=== PATIENT | male | born 1940 | race African-American/Black ===

== ENCOUNTER 2016-10-29 17:42 | Emergency (ER) | payer BC ==
[~2016-10-29] VITALS: Ht 182.9 cm; Wt 79.0 kg
[~2016-10-29 17:42] MED LIST: ASPEC81 PO; ATOR-24 PO; CLOP1TAB15 PO; LEVE500T13 PO; MELA1TAB5 PO; METO25TA56 PO; MOME50SP5; MTR800 PO; MULT-513 PO; OMEG10007 PO; OXYC-57 PO; PRLSR20 PO; TAMS0.4C38 PO
[2016-10-29 17:49] VITALS: TEMP 37.6; Ht 182.9 cm; Wt 79.0 kg
[2016-10-29] MEDS ORDERED: ONDANSETRON 8 MG/54 ML D5W IV STA (17:51)
[2016-10-29] MEDS ORDERED: SODIUM CHLORIDE 0.9% 1000ML 1,000 ML IV STA (17:51)
--- NOTE | 2016-10-29 18:13 | DIAGNOSTIC IMAGING REPORT ---
CHEST ONE VIEW PORTABLE CLINICAL HISTORY: EVALUATE ALTERED MENTAL STATUS/WEAKNESS dyspnea COMPARISON STUDY: 04/17/2015 FINDINGS: Prior median sternotomy. Diaphragms smooth. Lungs are clear. IMPRESSION: No acute process. Electronically signed by: Elier Mike M.D. 10/29/2016 6:12 PM
[2016-10-29 18:24] LABS: BASO % 0.3 %; BASO ABS # 0.03 K/uL (0-0.2); COMPLETE YES; EOS % 0.6 %; HEMATOCRIT 41.2 % (42-52); IG% 0.1 %; LYMPH % 6.7 %; LYMPH ABS # 0.71 K/uL (1.2-3.4); MEAN CELL VOLUME 95.6 fL (80-100); MEAN CORPUSCULAR HEMOGLOBIN 32.3 pg (25-34); MEAN CORPUSCULAR HGB CONC 33.7 g/dl (32-36); MEAN PLATELET VOLUME 10.7 fL (7.4-10.4); MONO % 6.1 %; NEUT % 86.2 %; PLATELET COUNT 127 K/uL (130-400); RED BLOOD COUNT 4.31 M/uL (4.7-6.1); WHITE BLOOD COUNT 10.58 K/uL (4.8-10.8)
[2016-10-29 18:36] LABS: PROTHROMBIN TIME (PATIENT) 10.9 SECONDS (9.0-12.0)
[2016-10-29 18:45] LABS: ALT/SGPT 23 U/L (12-78); AST/SGOT 26 U/L (15-37); BLOOD UREA NITROGEN 12 mg/dl (7-18); BUN/CREATININE RATIO 9.9 (10-20); CARBON DIOXIDE 26 mmol/L (21-32); CHLORIDE 107 mmol/L (98-107); GLUCOSE 103 mg/dl (70-99); MAGNESIUM 1.9 mg/dl (1.8-2.4); POTASSIUM 3.7 mmol/L (3.5-5.1); SODIUM 142 mmol/L (136-145)
[2016-10-29 18:47] LABS: ALKALINE PHOSPHATASE 82 U/L (45-117)
[2016-10-29 20:11] LABS: INFLUENZA A PCR Neg for Influ A (NEG); INFLUENZA B PCR Neg for Influ B (NEG)
[2016-10-29] MEDS ORDERED: ONDA4TAB10 SL (20:14)
--- NOTE | 2016-10-29 20:15 | EMERGENCY ROOM VISIT NOTE ---
History Report prepared by Ruth: Bozena Martinez Under the Supervision of: Dr. Jules Jorge D.O. First contact with patient: 17:46 Chief Complaint: SYNCOPE (NEAR SYNCOPE) Stated Complaint: NEAR SYNCOPE, FLU LIKE SX History of Present Illness The patient is a 76 year old male who presents to the Emergency Room with complaints of a persistent illness that began approximately four hours ago. The patient states that he developed nausea, vomiting, and diarrhea today about four hours ago. He states that his diarrhea is liquid in consistency and states that it has been persistent. The patient states that he has been vomiting for approximately one hour. He states that he has also been experiencing a cough, runny nose and lightheadedness. The patient states that the cough, congestion, and runny nose began four days ago. He states that prior to arrival he had a near syncopal episode. The patient notes eye pain today. He notes a history of kidney stones and states that sometimes his kidney stones present with these symptoms. Source of History: patient Onset: four hours ago Position: other (global) Quality: other (illness) Timing: other (persistent) Associated Symptoms: + cough, + diarrhea, + nausea, + vomiting Note: Associated Symptoms: runny nose, lightheadedness, congestion, eye pain Review of Systems See HPI for pertinent positives & negatives. A total of 10 systems reviewed and were otherwise negative. Past Medical & Surgical Medical Problems: (1) Kidney stone Surgical Problems: (1) Hx of CABG Family History FH: diabetes mellitus Social History Smoking Status: Unknown if Ever Smoked Alcohol Use: none Drug Use: none Housing Status: lives with family Occupation Status: retired Current/Historical Medications Scheduled Aspirin Enteric Coated (Ecotrin Or Generic *), 81 MG PO QAM Atorvastatin (Lipitor), 40 MG PO HS Clopidogrel (Plavix), 75 MG PO HS Fish Oil ([place]-3), 1 CAP PO BID Metoprolol Tartrate (Lopressor) (Lopressor), 25 MG PO HS Multivitamins/Minerals (Mvi With Minerals), 1 TAB PO QAM Omeprazole (Prilosec), 20 MG PO QAM Ondasetron Odt (Zofran Odt), 4 MG SL Q6H Tamsulosin Hcl (Flomax), 0.4 MG PO QAM Allergies Coded Allergies: Clindamycin (Unverified Allergy, Mild, rash, 06/20/15) Ranitidine (Verified Allergy, Unknown, CONFUSION, 06/20/15) Physical Exam Vital Signs Date Time Temp Pulse Resp B/P Pulse Ox O2 Delivery O2 Flow Rate FiO2 10/29/16 19:04 84 10/29/16 18:19 82 118/58 90 118/68 94 122/69 10/29/16 17:49 Room Air 10/29/16 17:49 37.6 84 16 121/68 97 Room Air Physical Exam CONSTITUTIONAL/VITAL SIGNS: Reviewed / noted above. GENERAL: Non-toxic in appearance. INTEGUMENTARY: Warm, dry, and [place]. HEAD: Normocephalic. EYES: without scleral icterus or trauma. ENT/OROPHARYNX: clear and moist. LYMPHADENOPATHY/NECK: Is supple without lymphadenopathy or meningismus. RESPIRATORY: Lungs clear and equal. CARDIOVASCULAR: Regular rate and rhythm. Systolic ejection murmur. GI/ABDOMEN: Soft and nontender. No organomegaly or pulsatile mass. No rebound or guarding. Normal bowel sounds. EXTREMITIES: Warm and well perfused. BACK: No CVA tenderness. NEUROLOGICAL: Intact without focal deficits. PSYCHIATRIC: normal affect. MUSCULOSKELETAL: Normally developed with good muscle tone. Medical Decision & Procedures ER Provider Diagnostic Interpretation: X ray results and stated below per my interpretation and radiology interpretation. CHEST ONE VIEW PORTABLE CLINICAL HISTORY: EVALUATE ALTERED MENTAL STATUS/WEAKNESS dyspnea COMPARISON STUDY: 04/17/2015 FINDINGS: Prior median sternotomy. Diaphragms smooth. Lungs are clear. IMPRESSION: No acute process. Electronically signed by: Elier Mike M.D. 10/29/2016 6:12 PM Laboratory Results 10/29/16 18:10 Red Blood Count 4.31, Mean Corpuscular Volume 95.6, Mean Corpuscular Hemoglobin 32.3, Mean Corpuscular Hemoglobin Concent 33.7, Mean Platelet Volume 10.7, Neutrophils (%) (Auto) 86.2, Lymphocytes (%) (Auto) 6.7, Monocytes (%) (Auto) 6.1, Eosinophils (%) (Auto) 0.6, Basophils (%) (Auto) 0.3, Neutrophils # (Auto) 9.12, Lymphocytes # (Auto) 0.71, Monocytes # (Auto) 0.65, Eosinophils # (Auto) 0.06, Basophils # (Auto) 0.03 10/29/16 18:10 Test 10/29/16 18:01 10/29/16 18:10 Influenza Type A (RT-PCR) Neg for Influ A (NEG) Influenza Type B (RT-PCR) Neg for Influ B (NEG) White Blood Count 10.58 K/uL (4.8-10.8) Red Blood Count 4.31 M/uL (4.7-6.1) Hemoglobin 13.9 g/dL (14.0-18.0) Hematocrit 41.2 % (42-52) Mean Corpuscular Volume 95.6 fL (80-100) Mean Corpuscular Hemoglobin 32.3 pg (25-34) Mean Corpuscular Hemoglobin Concent 33.7 g/dl (32-36) Platelet Count 127 K/uL (130-400) Mean Platelet Volume 10.7 fL (7.4-10.4) Neutrophils (%) (Auto) 86.2 % Lymphocytes (%) (Auto) 6.7 % Monocytes (%) (Auto) 6.1 % Eosinophils (%) (Auto) 0.6 % Basophils (%) (Auto) 0.3 % Neutrophils # (Auto) 9.12 K/uL (1.4-6.5) Lymphocytes # (Auto) 0.71 K/uL (1.2-3.4) Monocytes # (Auto) 0.65 K/uL (0.11-0.59) Eosinophils # (Auto) 0.06 K/uL (0-0.5) Basophils # (Auto) 0.03 K/uL (0-0.2) RDW Standard Deviation 49.3 fL (36.4-46.3) RDW Coefficient of Variation 14.0 % (11.5-14.5) Immature Granulocyte % (Auto) 0.1 % Immature Granulocyte # (Auto) 0.01 K/uL (0.00-0.02) Prothrombin Time 10.9 SECONDS (9.0-12.0) Prothromb Time International Ratio 1.0 (0.9-1.1) Activated Partial Thromboplast Time 26.0 SECONDS (21.0-31.0) Partial Thromboplastin Ratio 1.0 Anion Gap 9.0 mmol/L (3-11) Est Creatinine Clear Calc Drug Dose 58.4 ml/min Estimated GFR () 68.1 Estimated GFR (Non- 58.8 BUN/Creatinine Ratio 9.9 (10-20) Calcium Level 9.0 mg/dl (8.5-10.1) Magnesium Level 1.9 mg/dl (1.8-2.4) Total Bilirubin 1.3 mg/dl (0.2-1) Direct Bilirubin 0.3 mg/dl (0-0.2) Aspartate Amino Transf (AST/SGOT) 26 U/L (15-37) Alanine Aminotransferase (ALT/SGPT) 23 U/L (12-78) Alkaline Phosphatase 82 U/L (45-117) Total Creatine Kinase 59 U/L (39-308) Creatine Kinase MB < 0.5 ng/ml (0.5-3.6) Creatine Kinase MB Ratio (0-3.0) Troponin I < 0.015 ng/ml (0-0.045) Total Protein 7.5 gm/dl (6.4-8.2) Albumin 3.6 gm/dl (3.4-5.0) Lipase 135 U/L (73-393) Laboratory results as stated above per my review. Medications Administered Medications (Trade) Dose Ordered Sig/Isaiah Route Start Time Stop Time Status Last Admin Dose Admin Sodium Chloride (Nss 1000ml) 1,000 ml @ 999 mls/hr Q1H1M STAT IV 10/29/16 17:51 10/29/16 18:51 DC 10/29/16 18:13 999 MLS/HR Ondansetron HCl (Zofran 8mg Iv) 8 mg NOW STAT IV 10/29/16 17:51 10/29/16 17:53 DC 10/29/16 18:13 8 MG ECG Indication: vomiting, syncope Rate (beats per minute): 82 Rhythm: normal sinus Findings: no acute ischemic change, no ectopy ED Course 1746: Previous medical records were reviewed. The patient was evaluated in room A10. A complete history and physical examination was performed. 1750: Ordered Zofran 8 mg IV, Sodium Chloride 1000 lm @ 999 mls/hr IV. 2016: I reevaluated the patient and he is resting comfortably. I discussed the exam findings and I discussed the treatment plan. He verbalized complete understanding and agreement. He is ready to go home. Medical Decision Differential diagnosis: Etiologies such as gastroenteritis, food borne illness, infections, appendicitis , diverticulitis, inflammatory bowel disease, obstruction, GI bleed, biliary pathology, as well as others were entertained. This is a 76-year-old male who presents to the ED with a chief complaint of near syncope and flulike symptoms. The patient states that he developed nausea , vomiting and diarrhea about 4 hours ago. The patient also reports some upper respiratory symptoms. Vital signs are stable. Physical exam was unremarkable. He does have a systolic ejection murmur. Chest x-ray did not show any acute disease. CBC is unremarkable. Complete metabolic panel was unremarkable. Flu swab was negative. The patient was told the results of the test. He was treated with IV fluids and IV Zofran. He is felt to be stable for discharge. A prescription for Zofran was given. Impression Primary Impression: Vomiting and diarrhea Scribe Attestation The scribe's documentation has been prepared under my direction and personally reviewed by me in its entirety. I confirm that the note above accurately reflects all work, treatment, procedures, and medical decision making performed by me. Departure Information Dispostion Home / Self-Care Prescriptions Ondasetron Odt (ZOFRAN ODT) 4 Mg Tab 4 MG SL Q6H for Nausea, #15 TAB Prov: Jules Jorge D.O. 10/29/16 Referrals Orville Khan D.O. (PCP) Forms HOME CARE DOCUMENTATION FORM, IMPORTANT VISIT INFORMATION Patient Instructions A Signature Page, ED Diet Vomiting Diarrhea, My [facility] Additional Instructions Zofran: Allow one tablet to dissolve under the tongue every 6 hours as needed for nausea or vomiting. Imodium may be beneficial for diarrhea. Follow-up with your doctor for further care and evaluation in 1-5 days. Return to the emergency department for worsening or new symptoms or any concerns. You have been examined and treated today on an emergency basis only. This is not a substitute for, or an effort to provide, complete comprehensive medical care. It is impossible to recognize and treat all injuries or illnesses in a single emergency department visit. It is therefore important that you follow up closely with your doctor. Call as soon as possible for an appointment.
[2016-10-29] MEDS ORDERED: ONDANSETRON HOME PACK 4MG OD TAB PO ONE (20:30)
[2016-10-29 20:52] VITALS: BP 119/70; PULSE 74; O2SAT 99
== END 2016-10-29 20:54 | disposition home or self-care (01) ==
LOC: EDBD 17:42 → C.EDA 17:45
DX: R11.2 Nausea with vomiting, unspecified (principal); R19.7 Diarrhea, unspecified; Z95.1 Presence of aortocoronary bypass graft; Z79.82 Long term (current) use of aspirin

== ENCOUNTER 2016-10-31 21:40 | Emergency (ER) | payer BC ==
[~2016-10-31] VITALS: Ht 182.9 cm; Wt 79.7 kg
[2016-10-31 21:40] VITALS: TEMP 36.9; O2SAT 99; Ht 182.9 cm; Wt 79.7 kg
[~2016-10-31 21:40] MED LIST changes: -LEVE500T13 PO; -MELA1TAB5 PO; -MOME50SP5; -MTR800 PO; +ONDA4TAB10 SL; -OXYC-57 PO
[2016-10-31] MEDS ORDERED: MoRPHine SULFATE 4 MG/ML 1 ML CARP\\VIAL IV STA (22:17)
[2016-10-31] MEDS ORDERED: METOCLOPRAMIDE HCL INJ 5 MG/ML 2 ML VIAL IV STA (22:17)
[2016-10-31] MEDS ORDERED: SODIUM CHLORIDE 0.9% 500ML 500 ML IV STA (22:17)
--- NOTE | 2016-10-31 22:17 | EMERGENCY ROOM VISIT NOTE ---
History Report prepared by Ruth: Gael De La Torre Under the Supervision of: Dr. Jules Franklin M.D. First contact with patient: 21:47 Chief Complaint: OTHER COMPLAINT Stated Complaint: DIZZINESS, WEAKNESS, CONSTIPATED, History of Present Illness The patient is a 76 year old male who presents to the Emergency Room with complaints of persistent dizziness that started earlier today. The patient also complains of lightheadedness, constipation, and abdominal and chest tightness. The patient notes that the dizziness and lightheadedness is relieved when he closes his left eye. The patient has a history of shingles and he notes that at baseline he has pain in his left eye radiating to the the left side of his head. However, the pain he is feeling in his left today is different from what he usually feels. He also notes a decreased appetite. Two days ago, the patient presents to the ED for nausea and vomiting but these symptoms have since resolved. Source of History: patient Onset: earlier today Position: other (global) Associated Symptoms: + abdominal pain (tightness), + chest pain (tightness) Note: Other associated symptoms: lightheadedness, constipation, pain in left eye, decreased appetite. Review of Systems See HPI for pertinent positives & negatives. A total of 10 systems reviewed and were otherwise negative. Past Medical & Surgical Medical Problems: (1) Kidney stone Surgical Problems: (1) Hx of CABG Family History FH: diabetes mellitus Social History Smoking Status: Unknown if Ever Smoked Alcohol Use: none Drug Use: none Housing Status: lives with family Occupation Status: retired Current/Historical Medications Scheduled Aspirin Enteric Coated (Ecotrin Or Generic *), 81 MG PO QAM Atorvastatin (Lipitor), 40 MG PO HS Clopidogrel (Plavix), 75 MG PO HS Fish Oil ([place]-3), 1 CAP PO BID Metoprolol Tartrate (Lopressor) (Lopressor), 25 MG PO HS Multivitamins/Minerals (Mvi With Minerals), 1 TAB PO QAM Omeprazole (Prilosec), 20 MG PO QAM Ondasetron Odt (Zofran Odt), 4 MG SL Q6H Tamsulosin Hcl (Flomax), 0.4 MG PO QAM Allergies Coded Allergies: Clindamycin (Unverified Allergy, Mild, rash, 06/20/15) Ranitidine (Verified Allergy, Unknown, CONFUSION, 06/20/15) Physical Exam Vital Signs Date Time Temp Pulse Resp B/P Pulse Ox O2 Delivery O2 Flow Rate FiO2 10/31/16 23:36 78 15 120/61 98 Room Air 79 123/71 83 132/61 10/31/16 23:00 71 20 112/58 98 Room Air 10/31/16 22:05 71 10/31/16 21:40 36.9 73 20 133/66 99 Room Air 10/31/16 21:40 99 Room Air Physical Exam GENERAL: Patient is a healthy-appearing well-nourished HEAD: Normocephalic atraumatic EYES: Ocular movements intact pupils equal and react to light OROPHARYNX mucous membranes are moist no exudates present no erythema or edema present NECK: Supple no nuchal rigidity CHEST: Good equal expansion LUNGS: Clear and equal to auscultation CARDIAC: 12/29 systolic murmur ABDOMEN: Soft nontender no guarding BACK: No CVA tenderness EXTREMITIES: No pain upon palpation normal muscle strength in all groups no clubbing cyanosis or edema NEURO: Patient is following commands is answering questions appropriately. Alert and oriented x3 Cranial Nerves 2-12 grossly intact Medical Decision & Procedures ER Provider Diagnostic Interpretation: X-ray results as stated below per interpretation by me and the radiologist: CHEST ONE VIEW PORTABLE CLINICAL HISTORY: Chest pressure. Dizziness. COMPARISON STUDY: Chest radiograph October 29, 2016. FINDINGS: There are median sternotomy wires and clips from bypass grafting. No pneumothorax or pleural effusion is present. There is no evidence of pulmonary edema. Cardiomediastinal silhouette is stable. IMPRESSION: No acute cardiopulmonary findings. CT the head shows no acute cranial hemorrhage, bilateral chronic subdural hematomas. No midline shift. Involutional changes with small vessel disease Minimal sinus mucosal thickening Metallic structure just to the left globe CTA of the chest shows no aortic aneurysm or dissection cardiomegaly and CABG. No effusion or consolidation. CTA of the abdomen and pelvis shows no aortic aneurysm or dissection. Bilateral nephrolithiasis. Cholelithiasis. No evidence of appendicitis or colitis Electronically signed by: Pablo Nicole M.D. 10/31/2016 10:25 PM Dictated Date/Time: 10/31/2016 10:24 PM Laboratory Results 10/31/16 22:35 Red Blood Count 4.07, Mean Corpuscular Volume 94.1, Mean Corpuscular Hemoglobin 32.7, Mean Corpuscular Hemoglobin Concent 34.7, Mean Platelet Volume 10.6, Neutrophils (%) (Auto) 68.6, Lymphocytes (%) (Auto) 19.3, Monocytes (%) (Auto) 9.5, Eosinophils (%) (Auto) 2.1, Basophils (%) (Auto) 0.4, Neutrophils # (Auto) 5.10, Lymphocytes # (Auto) 1.44, Monocytes # (Auto) 0.71, Eosinophils # (Auto) 0.16, Basophils # (Auto) 0.03 10/31/16 22:35 Test 10/31/16 22:35 10/31/16 22:37 White Blood Count 7.45 K/uL (4.8-10.8) Red Blood Count 4.07 M/uL (4.7-6.1) Hemoglobin 13.3 g/dL (14.0-18.0) Hematocrit 38.3 % (42-52) Mean Corpuscular Volume 94.1 fL (80-100) Mean Corpuscular Hemoglobin 32.7 pg (25-34) Mean Corpuscular Hemoglobin Concent 34.7 g/dl (32-36) Platelet Count 135 K/uL (130-400) Mean Platelet Volume 10.6 fL (7.4-10.4) Neutrophils (%) (Auto) 68.6 % Lymphocytes (%) (Auto) 19.3 % Monocytes (%) (Auto) 9.5 % Eosinophils (%) (Auto) 2.1 % Basophils (%) (Auto) 0.4 % Neutrophils # (Auto) 5.10 K/uL (1.4-6.5) Lymphocytes # (Auto) 1.44 K/uL (1.2-3.4) Monocytes # (Auto) 0.71 K/uL (0.11-0.59) Eosinophils # (Auto) 0.16 K/uL (0-0.5) Basophils # (Auto) 0.03 K/uL (0-0.2) RDW Standard Deviation 47.2 fL (36.4-46.3) RDW Coefficient of Variation 13.7 % (11.5-14.5) Immature Granulocyte % (Auto) 0.1 % Immature Granulocyte # (Auto) 0.01 K/uL (0.00-0.02) Estimated GFR () 75.7 Estimated GFR (Non- 65.3 BUN/Creatinine Ratio 15.5 (10-20) Calcium Level 9.1 mg/dl (8.5-10.1) Total Bilirubin 1.5 mg/dl (0.2-1) Direct Bilirubin 0.3 mg/dl (0-0.2) Aspartate Amino Transf (AST/SGOT) 28 U/L (15-37) Alanine Aminotransferase (ALT/SGPT) 22 U/L (12-78) Alkaline Phosphatase 82 U/L (45-117) Total Creatine Kinase 70 U/L (39-308) Creatine Kinase MB 1.2 ng/ml (0.5-3.6) Creatine Kinase MB Ratio 1.7 (0-3.0) Troponin I < 0.015 ng/ml (0-0.045) Total Protein 7.5 gm/dl (6.4-8.2) Albumin 3.6 gm/dl (3.4-5.0) Thyroid Stimulating Hormone (TSH) 7.390 uIu/ml (0.300-4.500) Free Triiodothyronine 3.45 pg/ml (2.30-4.20) Bedside Hemoglobin 13.3 g/dl (14.0-18.0) Bedside Hematocrit 39 % (42-52) Bedside Sodium 142 mEq/L (135-144) Bedside Potassium 3.2 mEq/L (3.3-5.0) Bedside Chloride 101 mEq/L (101-112) Bedside Total CO2 25 mEq/l (24-31) Anion Gap 20.0 mmol/L (16-25) Bedside Blood Urea Nitrogen 16 mg/dl (7-18) Bedside Creatinine 1.1 mg/dl (0.6-1.3) Bedside Glucose (other) 95 mg/dl (70-99) Bedside Ionized Calcium (Taty) 1.19 mmol/l (1.12-1.32) Labs reviewed by ED physician. Medications Administered Medications (Trade) Dose Ordered Sig/Isaiah Route Start Time Stop Time Status Last Admin Dose Admin Sodium Chloride (Nss 500ml) 500 ml @ 999 mls/hr Q31M STAT IV 10/31/16 22:17 10/31/16 22:47 DC 10/31/16 23:06 999 MLS/HR Metoclopramide HCl (Reglan Inj) 10 mg NOW STAT IV 1/6/17 22:17 10/31/16 22:19 DC 10/31/16 23:06 10 MG Morphine Sulfate (MoRPHine SULFATE INJ) 4 mg NOW STAT IV 10/31/16 22:17 10/31/16 22:19 DC 10/31/16 23:07 4 MG Potassium Chloride (Gianna Ciel Elix) 40 meq NOW STAT PO 10/31/16 23:02 10/31/16 23:03 DC 10/31/16 23:34 40 MEQ Proparacaine HCl (Alcaine 0.5% Oph Soln) 2 drops NOW STAT OP 11/01/16 00:20 11/01/16 00:22 DC 11/01/16 00:22 2 DROPS ECG Indication: other Rate (beats per minute): 67 Rhythm: normal sinus Findings: no acute ischemic change, no ectopy ED Course 2213: Past medical records reviewed. The patient was evaluated in room A11. A complete history and physical examination was performed. 2217: Ordered Morphine Sulfate 4 mg IV, Reglan Inj 10 mg IV, NSS 500 ml @ 999 mls/hr IV. 2230: Ordered Ioversol 100 ml IV. 2302: Ordered Gianna Ciel Elix 40 meq PO. Medical Decision Differential diagnosis: Etiologies such as appendicitis, diverticulitis, PUD, biliary pathology, UTI, pancreatitis, obstruction, mesenteric ischemia, aortic pathology, infections, inflammatory bowel disease, renal colic, as well as others were entertained. This is a 76-year-old male who presents emergency department with multiple complaints. The patient is complaining of left eye pain, chest pain, abdominal pain. The patient states he feels rundown ever since he was sick with a virus from his children several days ago. Based on the multiple complaints, an IV was established, the patient has a normal CBC, renal profile, liver profile. His potassium was low and this was repleted in the emergency department. In addition the patient's TSH level is elevated. The patient's CT of his head shows bilateral chronic subdural hematomas. I believe these have been present since 2014 answers no acute bleeding present. CTA of the chest as well as CT of the abdomen pelvis does not show any acute process. I believe based on these findings at the patient can most likely be discharged home. His eye examination does show a small punctate abrasion to the left eye. As the patient is on contacts I advised him not to wear his contact I will place him on Cipro eyedrops. An IV was established, the patient was given normal saline bolus, 4 mg of morphine, 4 mg Zofran. Repeat examination revealed much improvement patient's symptoms. I do believe that the patient is well enough to be discharged home. He does have a scheduled echo with cardiology on Thursday. In addition I stressed the need for follow-up with his eye doctor tomorrow. I also stressed the need for follow-up with the patient's primary care physician for his hypothyroid. Impression Primary Impression: Hypokalemia Additional Impressions: Eye pain, Dizziness Scribe Attestation The scribe's documentation has been prepared under my direction and personally reviewed by me in its entirety. I confirm that the note above accurately reflects all work, treatment, procedures, and medical decision making performed by me. Departure Information Dispostion Home / Self-Care Referrals Orville Khan D.O. (PCP) Patient Instructions A Signature Page, My [facility]
--- NOTE | 2016-10-31 22:27 | DIAGNOSTIC IMAGING REPORT ---
CHEST ONE VIEW PORTABLE CLINICAL HISTORY: Chest pressure. Dizziness. COMPARISON STUDY: Chest radiograph October 29, 2016. FINDINGS: There are median sternotomy wires and clips from bypass grafting. No pneumothorax or pleural effusion is present. There is no evidence of pulmonary edema. Cardiomediastinal silhouette is stable. IMPRESSION: No acute cardiopulmonary findings. Electronically signed by: Pablo Nicole M.D. 10/31/2016 10:25 PM Dictated Date/Time: 10/31/2016 10:24 PM
[2016-10-31] MEDS ORDERED: OPTIRAY 320 IV PRN (22:30)
[2016-10-31 22:50] LABS: BASO % 0.4 %; BASO ABS # 0.03 K/uL (0-0.2); COMPLETE YES; EOS % 2.1 %; HEMATOCRIT 38.3 % (42-52); IG% 0.1 %; LYMPH % 19.3 %; LYMPH ABS # 1.44 K/uL (1.2-3.4); MEAN CELL VOLUME 94.1 fL (80-100); MEAN CORPUSCULAR HEMOGLOBIN 32.7 pg (25-34); MEAN CORPUSCULAR HGB CONC 34.7 g/dl (32-36); MEAN PLATELET VOLUME 10.6 fL (7.4-10.4); MONO % 9.5 %; NEUT % 68.6 %; PLATELET COUNT 135 K/uL (130-400); RED BLOOD COUNT 4.07 M/uL (4.7-6.1); WHITE BLOOD COUNT 7.45 K/uL (4.8-10.8)
[2016-10-31 22:55] LABS: ISTAT CREATININE 1.1 mg/dl (0.6-1.3); ISTAT HEMOGLOBIN 13.3 g/dl (14.0-18.0); ISTAT IONIZED CALCIUM 1.19 mmol/l (1.12-1.32)
[2016-10-31] MEDS ORDERED: POTASSIUM CHLORIDE 20 MEQ/15 ML UDC PO STA (23:02)
[2016-10-31 23:10] LABS: ALT/SGPT 22 U/L (12-78); BLOOD UREA NITROGEN 17 mg/dl (7-18); BUN/CREATININE RATIO 15.5 (10-20); CALCIUM 9.1 mg/dl (8.5-10.1); CARBON DIOXIDE 27 mmol/L (21-32); CHLORIDE 104 mmol/L (98-107); GLUCOSE 90 mg/dl (70-99); POTASSIUM 3.3 mmol/L (3.5-5.1); SODIUM 143 mmol/L (136-145)
[2016-10-31 23:21] LABS: ALKALINE PHOSPHATASE 82 U/L (45-117); AST/SGOT 28 U/L (15-37); CKMB/CK RATIO 1.7 (0-3.0)
[2016-11-01] MEDS ORDERED: PROPARACAINE HCL 0.5% OP SOLN 15 ML BTL ONE (00:20)
[2016-11-01] MEDS ORDERED: PROPARACAINE HCL 0.5% OP SOLN 15 ML BTL OP STA (00:20)
[2016-11-01] MEDS ORDERED: ARMOUR THYROID 30 MG TAB PO STA (00:20)
[2016-11-01] MEDS ORDERED: CIPROFLOXACIN HCL 0.3% OP SOLN 2.5 ML BTL OP STA (00:40)
[2016-11-01 00:59] VITALS: BP 111/65; PULSE 87; O2SAT 99
--- NOTE | 2016-11-01 07:00 | DIAGNOSTIC IMAGING REPORT ---
CT OF THE HEAD WITHOUT CONTRAST CLINICAL HISTORY: Dizziness. Headache. COMPARISON STUDY: Head CT April 06, [address] and CTA of the head May 16, 2015. TECHNIQUE: Helical axial images of the head were obtained without IV contrast. Automated exposure control was utilized for the study. FINDINGS: Small bilateral hypodense subdural fluid collections are noted. These have decreased in size since exam of May 16, 2015. The left-sided collection measures 8 mm in thickness. It previously measured 1.3 cm. These collections are predominantly hypodense with a few areas of increased attenuation. The ventricular system is stable. The basilar cisterns are patent. No calvarial fracture is present. There is mild mucosal thickening of the sinuses. Postsurgical findings within the left orbit are noted. IMPRESSION: Small bilateral subdural hematomas which are smaller in size than on exam of May 16, 2015. These are likely chronic. Electronically signed by: Pablo Nicole M.D. 11/01/2016 6:59 AM Dictated Date/Time: 11/01/2016 6:54 AM
--- NOTE | 2016-11-01 07:10 | DIAGNOSTIC IMAGING REPORT ---
CT ANGIOGRAPHY OF THE CHEST, ABDOMEN, AND PELVIS CLINICAL HISTORY: Dizziness, weakness. Constipation. COMPARISON STUDY: CT of the abdomen and pelvis June 14, 2014. TECHNIQUE: Before and following the IV administration of Optiray-320, helical axial images of the chest, abdomen and pelvis were obtained. Maximal intensity projections and sagittal and coronal reformats were viewed on an independent 3D workstation. IV contrast was administered without complication. 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 The heart is mildly enlarged. This extensive coronary artery calcification. There is mild dilatation of the central pulmonary arteries. There is no aortic dissection or intramural hematoma. No central pulmonary embolus is identified. There are no areas of consolidation. No pneumothorax or pleural effusion is present. There is moderate plaque within the abdominal aorta. The aorta is ectatic. There is no aneurysmal dilatation. There is no dissection. Multiple bilateral renal calculi are noted. There is no hydronephrosis. No ureteral calculi are identified. There is moderate renal cortical thinning. Arterial phase images of the liver, spleen, adrenal glands and pancreas are unremarkable. There are small gallstones within the gallbladder. There is no biliary or pancreatic ductal dilatation. There is no evidence for a bowel obstruction. The appendix is unremarkable. Skeletal structures are unremarkable. There is no lymphadenopathy. There are multiple subcentimeter renal lesions. These are too small to characterize but likely reflect cysts. IMPRESSION: 1. No aortic dissection. 2. No acute findings within the chest. 3. Bilateral nephrolithiasis. No ureteral calculi or hydronephrosis. 4. Cholelithiasis. 5. No acute process within the abdomen or pelvis. Electronically signed by: Pablo Nicole M.D. 11/01/2016 7:08 AM Dictated Date/Time: 11/01/2016 6:59 AM
== END 2016-11-01 01:00 | disposition home or self-care (01) ==
LOC: EDBD 21:40 → C.EDA 21:41
DX: R42 Dizziness and giddiness (principal); H57.12 Ocular pain, left eye; E87.6 Hypokalemia; Z87.442 Personal history of urinary calculi; Z95.1 Presence of aortocoronary bypass graft; N20.0 Calculus of kidney; K80.20 Calculus of gallbladder without cholecystitis without obstruction; Z79.82 Long term (current) use of aspirin; Z79.899 Other long term (current) drug therapy; Z88.8 Allergy status to other drugs, medicaments and biological substances; Z83.3 Family history of diabetes mellitus

== ENCOUNTER 2016-11-17 15:52 | Observation (INO) | payer BC ==
[~2016-11-17] VITALS: Ht 182.9 cm; Wt 76.6 kg
[2016-11-17] MEDS ORDERED: ASPIRIN 324 MG CHEW PO STA (17:02)
[2016-11-17] MEDS ORDERED: NITROGLYCERIN 0.4 MG SL PER TAB CHARGE SL STA (17:02)
[2016-11-17] MEDS ORDERED: NITROGLYCERIN 0.4 MG SL PER TAB CHARGE SL PRN (17:15)
[2016-11-17 17:19] LABS: BASO % 0.5 %; BASO ABS # 0.05 K/uL (0-0.2); COMPLETE YES; EOS % 1.4 %; HEMATOCRIT 39.6 % (42-52); IG% 0.2 %; LYMPH % 16.1 %; LYMPH ABS # 1.47 K/uL (1.2-3.4); MEAN CELL VOLUME 95.9 fL (80-100); MEAN CORPUSCULAR HEMOGLOBIN 33.2 pg (25-34); MEAN CORPUSCULAR HGB CONC 34.6 g/dl (32-36); MEAN PLATELET VOLUME 10.4 fL (7.4-10.4); MONO % 8.7 %; NEUT % 73.1 %; PLATELET COUNT 151 K/uL (130-400); RED BLOOD COUNT 4.13 M/uL (4.7-6.1); WHITE BLOOD COUNT 9.11 K/uL (4.8-10.8)
[2016-11-17 17:40] LABS: BLOOD UREA NITROGEN 15 mg/dl (7-18); BUN/CREATININE RATIO 12.5 (10-20); CARBON DIOXIDE 26 mmol/L (21-32); CHLORIDE 105 mmol/L (98-107); GLUCOSE 89 mg/dl (70-99); POTASSIUM 3.5 mmol/L (3.5-5.1); SODIUM 142 mmol/L (136-145)
[2016-11-17 17:45] LABS: CKMB/CK RATIO 1.4 (0-3.0)
--- NOTE | 2016-11-17 17:46 | DIAGNOSTIC IMAGING REPORT ---
SINGLE VIEW CHEST CLINICAL HISTORY: Atypical chest pain. FINDINGS: 2 AP, portable, upright chest radiographs are compared to chest x-ray and chest CT dated 10/31/2016. The patient is status post midline sternotomy. The heart is top normal in size. The pulmonary vasculature is noncongested. Nonspecific interstitial thickening is similar to previous. The lungs and pleural spaces are clear. No pneumothorax is seen. The bony thorax is grossly intact. IMPRESSION: No acute cardiopulmonary abnormality and no significant change from studies dated 10/31/2016. Electronically signed by: Landon Lynch M.D. 11/17/2016 5:44 PM Dictated Date/Time: 11/17/2016 5:42 PM
[2016-11-17] MEDS ORDERED: PRDFOPS OP (17:52)
[2016-11-17] MEDS ORDERED: LEVO25TA5 PO (17:52)
[2016-11-17] MEDS ORDERED: ONDANSETRON INJ 2 MG/ML 2 ML VIAL IV PRN (19:00)
[2016-11-17] MEDS ORDERED: ACETAMINOPHEN 325 MG TAB PO PRN (19:00)
--- NOTE | 2016-11-17 19:09 | History and Physical ---
History & Physical Date & Time of Service: Nov 17, 2016 at 18:53 Chief Complaint: Chest Pain Primary Care Physician: Caren Buck C.R.NVanessaPVanessa History of Present Illness Source: patient, hospital records 76 yo male with a history of CABG in 2002, presented today with substernal chest pressure of several hours duration. He says that since 2002 his heart has been stable, no severe episodes of chest pain. He has not had any recent stress tests or need for heart catheterization. He recalls having an echocardiogram on 11/03 and was actually scheduled to see Dr. Celaya in the office today but appointment was cancelled. This morning around 11am he was walking into [facility] when he had a substernal chest pressure. He stopped walking but the pressure remained. He was not over exerting himself when the pressure began. No associated diaphoresis, nausea or dyspnea. The pain did not radiate. When he got home he drank some misael corey and belched but it did not help. He took two Tums but no relief in symptoms. He then had a bowel movement and afterwards he felt very weak and dizzy, light headed. Those symptoms resolved quickly but the chest pressure remained so he came to the ED. The initial EKG and troponin were normal. He took a SL Nitro and aspirin and the pressure did subside slightly but currently it is still present. Past Medical/Surgical History CABG in 2002 Left carotid endarterectomy 2016 TIA Hyperlipidemia HTN Kidney stones Family History FH: diabetes mellitus Social History Smoking Status: Never Smoker Drug Use: none Housing status: lives with family Occupational Status: retired Immunizations History of Influenza Vaccine: Yes Influenza Vaccine Date: Aug 03, 2011 History of Tetanus Vaccine?: Yes Tetanus Immunization Date: Dec 21, 2011 History of Pneumococcal: Yes Pneumococcal Date: Aug 03, 2011 History of Hepatitis B Vaccine: Yes Hepatitis Immunization Date: Dec 21, 2011 Multi-Drug Resistant Organisms History of MDRO: No Allergies Coded Allergies: Clindamycin (Unverified Allergy, Mild, rash, 06/20/15) Ranitidine (Verified Allergy, Unknown, CONFUSION, 06/20/15) Home Medications Scheduled Aspirin Enteric Coated (Ecotrin Or Generic *), 81 MG PO QAM Atorvastatin (Lipitor), 40 MG PO HS Clopidogrel (Plavix), 75 MG PO HS Fish Oil ([place]-3), 1 CAP PO BID Levothyroxine Sodium (Levothyroxine Sodium), 25 MCG PO QPM Metoprolol Tartrate (Lopressor) (Lopressor), 25 MG PO HS Multivitamins/Minerals (Mvi With Minerals), 1 TAB PO QAM Omeprazole (Prilosec), 20 MG PO QAM Prednisolone Acetate (Prednisolone Acetate), 1 DROP OP QID Tamsulosin Hcl (Flomax), 0.4 MG PO QAM Review of Systems Constitutional: + fatigue, + weakness, No chills, No fever, No problem reported , No sweats, No weight loss Eyes: + eye pain (left eye pain recently, better with steroid drops), No diplopia, No discharge, No problem reported, No redness, No worsening of vision ENT: No dental problems, No hearing loss, No nasal symptoms, No problem reported, No sore throat, No tinnitus, No trouble swallowing, No unusual epistaxis Respiratory: No cough, No dyspnea at rest, No dyspnea on exertion, No hemoptysis, No problem reported, No shortness of breath, No sputum, No wheezing Cardiovascular: + chest pain (pressure, substernal), No PND, No claudication, No edema, No orthopnea, No palpitations Abdomen: No GI bleeding, No constipation, No diarrhea, No nausea, No pain, No problem reported, No vomiting Musculoskeletal: No calf pain, No joint pain, No muscle pain, No problem reported, No swelling Genitourinary - Male: No dysuria, No hematuria, No urinary frequency, No urinary urgency Psychiatric: No anhedonism, No anxiety, No depression symptoms, No insomnia, No problem reported, No substance abuse Endocrine: No excessive thirst, No excessive urination, No fatigue, No problem reported Hematologic / Lymphatic: No abnormal bleeding/bruising, No clotting problems, No night sweats, No problem reported, No swollen lymph nodes Integumentary: No bleeding, No color change, No itch, No new/changing skin lesions, No problem reported, No rash Allergic / Immunologic: No environmental allergies, No food allergies, No frequent infections, No hives, No pet sensitivities, No poor healing, No problem reported, No prolonged convalescence, No seasonal allergies Physical Exam Vital Signs Date Time Temp Pulse Resp B/P Pulse Ox O2 Delivery O2 Flow Rate FiO2 11/17/16 17:19 85 20 140/82 100 Room Air 11/17/16 17:08 68 11/17/16 16:01 100 Room Air 11/17/16 15:58 36.6 79 18 156/75 100 Room Air General Appearance: WD/WN, no apparent distress Head: normocephalic, atraumatic Eyes: normal inspection, EOMI, sclerae normal ENT: normal ENT inspection, hearing grossly normal, pharynx normal Neck: supple, no adenopathy, no JVD, trachea midline Respiratory/Chest: chest non-tender, lungs clear, normal breath sounds, no respiratory distress, no accessory muscle use Cardiovascular: regular rate, rhythm, no edema, no gallop, no JVD, normal peripheral pulses, + systolic murmur Abdomen/GI: normal bowel sounds, non tender, soft, no organomegaly Back: normal inspection, no CVA tenderness, no muscle spasm, normal range of motion Extremities/Musculoskelatal: normal inspection, no calf tenderness, normal capillary refill, no pedal edema, normal range of motion, pelvis stable Neurologic/Psych: block captain II-XII nml as tested, no motor/sensory deficits, alert, normal mood/affect, normal reflexes, oriented x 3 Skin: normal color, warm/dry, no rash Lymphatic: no adenopathy Diagnostics Laboratory Results Results Past 24 Hours Test 11/17/16 16:35 Range/Units White Blood Count 9.11 4.8-10.8 K/uL Red Blood Count 4.13 4.7-6.1 M/uL Hemoglobin 13.7 14.0-18.0 g/dL Hematocrit 39.6 42-52 % Mean Corpuscular Volume 95.9 80-100 fL Mean Corpuscular Hemoglobin 33.2 25-34 pg Mean Corpuscular Hemoglobin Concent 34.6 32-36 g/dl Platelet Count 151 130-400 K/uL Mean Platelet Volume 10.4 7.4-10.4 fL Neutrophils (%) (Auto) 73.1 % Lymphocytes (%) (Auto) 16.1 % Monocytes (%) (Auto) 8.7 % Eosinophils (%) (Auto) 1.4 % Basophils (%) (Auto) 0.5 % Neutrophils # (Auto) 6.65 1.4-6.5 K/uL Lymphocytes # (Auto) 1.47 1.2-3.4 K/uL Monocytes # (Auto) 0.79 0.11-0.59 K/uL Eosinophils # (Auto) 0.13 0-0.5 K/uL Basophils # (Auto) 0.05 0-0.2 K/uL RDW Standard Deviation 47.9 36.4-46.3 fL RDW Coefficient of Variation 13.8 11.5-14.5 % Immature Granulocyte % (Auto) 0.2 % Immature Granulocyte # (Auto) 0.02 0.00-0.02 K/uL Sodium Level 142 136-145 mmol/L Potassium Level 3.5 3.5-5.1 mmol/L Chloride Level 105 98-107 mmol/L Carbon Dioxide Level 26 21-32 mmol/L Anion Gap 11.0 3-11 mmol/L Blood Urea Nitrogen 15 7-18 mg/dl Creatinine 1.20 0.60-1.40 mg/dl Estimated GFR () 68.1 Estimated GFR (Non- 58.8 BUN/Creatinine Ratio 12.5 10-20 Random Glucose 89 70-99 mg/dl Calcium Level 10.0 8.5-10.1 mg/dl Total Creatine Kinase 63 39-308 U/L Creatine Kinase MB 0.9 0.5-3.6 ng/ml Creatine Kinase MB Ratio 1.4 0-3.0 Troponin I < 0.015 0-0.045 ng/ml CXR normal Normal EKG Impression Assessment and Plan 76 yo male with h/o CAD s/p CABG in 2002 who presents with several hours of chest pressure, normal EKG and negative troponin - Chest pain: no signs of ACS currently, pain did improve slightly after SL nitro will observe on telemetry, repeat troponin and CK/MB q6 for 3 more sets repeat EKG in the AM and with pain continue aspirin, Plavix, metoprolol, Lipitor apply 2% nitro q6 will make NPO after midnight, consult cardiology for their recommendations regarding stress test - HTN: BP stable, continue metoprolol - Hyperlipidemia: continue Lipitor - DVT prophylaxis: Heparin q8 Level of Care Telemetry Resuscitation Status FULL RESUSCITATION VTE Prophylaxis VTE Risk Assessment Done? Y/N: Yes Risk Level: Moderate Given or contraindicated: Unfractionated heparin SQ Additional Copies To Orville Khan D.O.
[2016-11-17 20:59] VITALS: Ht 182.9 cm; Wt 76.6 kg
[2016-11-17] MEDS ORDERED: METOPROLOL TARTRATE 25 MG TAB PO SCH (21:00)
[2016-11-17] MEDS: PrednisoLONE ACET 1% OP SUSP 5 ML BTL OP SCH (21:10)
[2016-11-17] MEDS ORDERED: IV FLUIDS COMPLETED PRN (21:30)
[2016-11-17] MEDS: LEVOTHYROXINE 25 MCG TAB PO SCH (21:42)
[2016-11-17] MEDS: CLOPIDOGREL BISULFATE 75 MG TAB PO SCH (21:42)
[2016-11-17] MEDS: NITROGLYCERIN OINT 2% 1GM PACKET EXT SCH (21:42)
[2016-11-17] MEDS: ATORVASTATIN 40 MG TAB PO SCH (21:43)
[2016-11-17] MEDS: OMEGA-3 (PURIFIED FISH OIL) 1 GM CAP PO SCH (21:43)
[2016-11-17] MEDS ORDERED: INFLUENZA VIRUS QUAD VACCINE 0.5 ML SYR IM. ONE (21:45)
[2016-11-17] MEDS ORDERED: INFLUENZA ADMINISTRATION CHARGE ONE (21:45)
--- NOTE | 2016-11-17 22:06 | EMERGENCY ROOM VISIT NOTE ---
History Report prepared by Ruth: Aleksandr Holcomb Under the Supervision of: Dr. Andrea Briseno M.D. First contact with patient: 16:54 Chief Complaint: CHEST PAIN Stated Complaint: CHEST PAIN Nursing Triage Summary: chest pain started about 1 hr ago. denies sob. pain seems to be intermittent History of Present Illness The patient is a 76 year old male who presents to the Emergency Room with complaints of constant chest pressure beginning several hours prior to arrival. He currently rates his discomfort as a 5/10 in severity and associates mild shortness of breath and dizziness with today's symptoms. The patient states he took an antacid and drank misael corey without relief. He notes he had heart surgery in 2002 and has not had any heart procedures since then. The patient states he had an echocardiogram with Dr. Celaya performed on November 03 but does not know the results. It is noted the patient received a CTA of the chest on October 31. He notes he takes baby aspirin daily. The patient states he has a history of a bleed on his brain two years ago. He notes he had three bowel movements today. It is noted the patient was seen earlier in the month for dizziness and then for nausea and vomiting. Source of History: patient Onset: several hours STAFF ASSISTANT Position: chest Symptom Intensity: 5/10 Quality: pressure Timing: constant Associated Symptoms: + SOB (mild), + chest pain (pressure) Note: Associated symptoms: dizziness. Review of Systems See HPI for pertinent positives & negatives. A total of 10 systems reviewed and were otherwise negative. Past Medical & Surgical Medical Problems: (1) CAD (coronary artery disease) (2) Chest pain (3) Kidney stone Surgical Problems: (1) Hx of CABG Family History FH: diabetes mellitus Social History Smoking Status: Never Smoker Alcohol Use: none Drug Use: none Housing Status: lives with family Occupation Status: retired Current/Historical Medications Scheduled Aspirin Enteric Coated (Ecotrin Or Generic *), 81 MG PO QAM Atorvastatin (Lipitor), 40 MG PO HS Clopidogrel (Plavix), 75 MG PO HS Fish Oil ([place]-3), 1 CAP PO BID Levothyroxine Sodium (Levothyroxine Sodium), 25 MCG PO QPM Metoprolol Tartrate (Lopressor) (Lopressor), 25 MG PO HS Multivitamins/Minerals (Mvi With Minerals), 1 TAB PO QAM Omeprazole (Prilosec), 20 MG PO QAM Prednisolone Acetate (Prednisolone Acetate), 1 DROP OP QID Tamsulosin Hcl (Flomax), 0.4 MG PO QAM Allergies Coded Allergies: Clindamycin (Unverified Allergy, Mild, rash, 06/20/15) Ranitidine (Verified Allergy, Unknown, CONFUSION, 06/20/15) Physical Exam Vital Signs Date Time Temp Pulse Resp B/P Pulse Ox O2 Delivery O2 Flow Rate FiO2 11/17/16 18:52 65 19 96 11/17/16 18:47 67 23 100 11/17/16 18:42 62 18 100 11/17/16 18:37 75 26 99 11/17/16 18:32 72 16 98 11/17/16 18:27 56 17 99 11/17/16 18:22 58 15 98 11/17/16 18:17 59 23 99 11/17/16 18:12 63 22 100 11/17/16 18:07 63 21 100 11/17/16 18:02 65 21 100 11/17/16 17:57 65 21 100 11/17/16 17:52 66 17 100 11/17/16 17:47 63 19 100 11/17/16 17:42 62 17 100 11/17/16 17:37 67 16 100 11/17/16 17:32 71 20 100 11/17/16 17:27 72 22 100 11/17/16 17:22 75 24 100 11/17/16 17:19 85 20 140/82 100 Room Air 11/17/16 17:17 81 20 100 11/17/16 17:12 70 15 100 11/17/16 17:08 68 11/17/16 17:07 69 33 100 11/17/16 17:03 140/82 11/17/16 16:01 100 Room Air 11/17/16 15:58 36.6 79 18 156/75 100 Room Air Physical Exam GENERAL: Patient is well appearing and in minimal distress. HEENT: No acute trauma, normocephalic atraumatic, mucous membranes moist, no nasal congestion, no scleral icterus. NECK: No stridor, no adenopathy, no meningismus, trachea is midline. LUNGS: No dyspnea. Clear to auscultation and equal bilaterally. No wheeze, no rhonchi. HEART: Regular rate and rhythm. No murmurs, rubs, gallops appreciated. ABDOMEN: Soft, nontender, bowel sounds positive, no masses appreciated, no peritonitis. BACK: No midline tenderness, no CVA tenderness EXTREMITIES: Normal motion all extremities, no cyanosis, no edema. NEUROLOGIC: Alert and oriented, no acute motor or sensory deficits, no focal weakness, cranial nerves grossly intact, chronic dropping of left eyelid. SKIN: No rash, no jaundice, no diaphoresis. Medical Decision & Procedures ER Provider Diagnostic Interpretation: X ray results are stated below per my interpretation and the radiologist's interpretation. SINGLE VIEW CHEST CLINICAL HISTORY: Atypical chest pain. FINDINGS: 2 AP, portable, upright chest radiographs are compared to chest x-ray and chest CT dated 10/31/2016. The patient is status post midline sternotomy. The heart is top normal in size. The pulmonary vasculature is noncongested. Nonspecific interstitial thickening is similar to previous. The lungs and pleural spaces are clear. No pneumothorax is seen. The bony thorax is grossly intact. IMPRESSION: No acute cardiopulmonary abnormality and no significant change from studies dated 10/31/2016. Electronically signed by: Landon Lynch M.D. 11/17/2016 5:44 PM Laboratory Results 11/17/16 16:35 Red Blood Count 4.13, Mean Corpuscular Volume 95.9, Mean Corpuscular Hemoglobin 33.2, Mean Corpuscular Hemoglobin Concent 34.6, Mean Platelet Volume 10.4, Neutrophils (%) (Auto) 73.1, Lymphocytes (%) (Auto) 16.1, Monocytes (%) (Auto) 8.7, Eosinophils (%) (Auto) 1.4, Basophils (%) (Auto) 0.5, Neutrophils # (Auto) 6.65, Lymphocytes # (Auto) 1.47, Monocytes # (Auto) 0.79, Eosinophils # (Auto) 0.13, Basophils # (Auto) 0.05 11/17/16 16:35 Test 11/17/16 16:35 White Blood Count 9.11 K/uL (4.8-10.8) Red Blood Count 4.13 M/uL (4.7-6.1) Hemoglobin 13.7 g/dL (14.0-18.0) Hematocrit 39.6 % (42-52) Mean Corpuscular Volume 95.9 fL (80-100) Mean Corpuscular Hemoglobin 33.2 pg (25-34) Mean Corpuscular Hemoglobin Concent 34.6 g/dl (32-36) Platelet Count 151 K/uL (130-400) Mean Platelet Volume 10.4 fL (7.4-10.4) Neutrophils (%) (Auto) 73.1 % Lymphocytes (%) (Auto) 16.1 % Monocytes (%) (Auto) 8.7 % Eosinophils (%) (Auto) 1.4 % Basophils (%) (Auto) 0.5 % Neutrophils # (Auto) 6.65 K/uL (1.4-6.5) Lymphocytes # (Auto) 1.47 K/uL (1.2-3.4) Monocytes # (Auto) 0.79 K/uL (0.11-0.59) Eosinophils # (Auto) 0.13 K/uL (0-0.5) Basophils # (Auto) 0.05 K/uL (0-0.2) RDW Standard Deviation 47.9 fL (36.4-46.3) RDW Coefficient of Variation 13.8 % (11.5-14.5) Immature Granulocyte % (Auto) 0.2 % Immature Granulocyte # (Auto) 0.02 K/uL (0.00-0.02) Anion Gap 11.0 mmol/L (3-11) Estimated GFR () 68.1 Estimated GFR (Non- 58.8 BUN/Creatinine Ratio 12.5 (10-20) Calcium Level 10.0 mg/dl (8.5-10.1) Total Creatine Kinase 63 U/L (39-308) Creatine Kinase MB 0.9 ng/ml (0.5-3.6) Creatine Kinase MB Ratio 1.4 (0-3.0) Troponin I < 0.015 ng/ml (0-0.045) Laboratory results as reviewed by me. Medications Administered Medications (Trade) Dose Ordered Sig/Isaiah Route Start Time Stop Time Status Last Admin Dose Admin Nitroglycerin (Nitrostat Tab) 0.4 mg NOW STAT SL 11/17/16 17:02 11/17/16 17:03 DC 11/17/16 17:17 0.4 MG Aspirin (Aspirin Chew) 324 mg NOW STAT PO 11/17/16 17:02 11/17/16 17:03 DC 11/17/16 17:18 324 MG ECG Indication: chest pain Rate (beats per minute): 72 Rhythm: normal sinus Findings: no acute ischemic change, no ectopy ED Course 170: The patient was evaluated in room A9A. A complete history and physical exam was performed. 170: Ordered Aspirin 324 mg PO, Nitrostat Tab 0.4 mg SL. 1715: Ordered Nitrostat Tab 0.4 mg SL. 174: Paged JEANNETTE Daniels (Hospitalist), because the patient's chest pain has not resolved. 175: I spoke to JEANNETTE Daniels (Hospitalist) about the patient's case, and he will follow the patient for further evaluation. Medical Decision Differential: Cardiac Ischemia (STEMI, NSTEMI, Unstable Angina, etc), Aortic Dissection, Arrhythmia, Pulmonary Embolism, Pneumonia, Pneumothorax, MSK, Infectious, Pericarditis/Myocarditis, Esophageal Rupture, Gastrointestinal, amongst other pathologies entertained. 76 yr old male with history of CABG previous arrives with 1 hr of pressure like substernal chest discomfort. Resolved with SLNTG. Given full dose ASA. CXR looks good. No stemi by EKG. Initial trop negative. No evidence dissection, PE , pna, pntx, nor esophageal rupture. Patient stable and feeling much improved. Given history will need to come in for cardiac rule out. Consults Time Called: 1744 Consulting Physician: JEANNETTE Daniels (Hospitalist) Returned Call: 1753 I spoke to JEANNETTE Daniels (Hospitalist) about the patient's case, and he will follow the patient for further evaluation. Impression Primary Impression: Substernal chest pain Scribe Attestation The scribe's documentation has been prepared under my direction and personally reviewed by me in its entirety. I confirm that the note above accurately reflects all work, treatment, procedures, and medical decision making performed by me. Departure Information Dispostion Being Evaluated By Hospitalist (JEANNETTE Daniels (Hospitalist)) Referrals Caren Buck C.R.N.P. (PCP)
[2016-11-17] MEDS: HEPARIN SOD 5000 UNIT/0.5 ML CARP SQ SCH (22:19)
[2016-11-17 22:56] VITALS: BP 111/63; PULSE 56; TEMP 36.5; O2SAT 95
[2016-11-17 23:48] LABS: CKMB/CK RATIO 1.6 (0-3.0)
[2016-11-18] VITALS (16 sets, daily range): BP systolic 104–126; BP diastolic 56–74; PULSE 50–72; TEMP 36.4–37; O2SAT 91–100
[2016-11-18] MEDS: NITROGLYCERIN OINT 2% 1GM PACKET EXT SCH ×3 (03:45→15:57)
[2016-11-18 05:55] LABS: CKMB/CK RATIO 1.9 (0-3.0)
[2016-11-18] MEDS: HEPARIN SOD 5000 UNIT/0.5 ML CARP SQ SCH ×3 (06:12→22:23)
[2016-11-18] MEDS: PANTOprazole SOD 40 MG TAB PO SCH (07:47)
[2016-11-18] MEDS: OMEGA-3 (PURIFIED FISH OIL) 1 GM CAP PO SCH ×2 (07:47→22:21)
[2016-11-18] MEDS: ASPIRIN 81 MG ECTAB PO SCH (07:47)
[2016-11-18] MEDS: PrednisoLONE ACET 1% OP SUSP 5 ML BTL OP SCH ×4 (07:48→20:49)
[2016-11-18] MEDS: TAMSULOSIN HCL 0.4 MG CAP PO SCH (07:48)
[2016-11-18 12:22] LABS: CKMB/CK RATIO 1.2 (0-3.0)
[2016-11-18] MEDS ORDERED: NiCARDipine HCL INJ 2.5 MG/ML 10 ML AMP ONE (13:26)
[2016-11-18] MEDS ORDERED: MIDAZOLAM HCL 1 MG/ML 2ML VIAL ONE ×2 (13:27→14:22)
[2016-11-18] MEDS ORDERED: FENTANYL CITRATE INJ 50 MCG/1 ML 2 ML VIAL ONE (13:27)
[2016-11-18] MEDS ORDERED: HEPARIN SOD (PORCINE) 1000 UNIT/ML 10 ML VIAL ONE (13:27)
[2016-11-18] MEDS ORDERED: NITROGLYCERIN/D5W 100MCG/ML 20ML SYR ONE (13:28)
--- NOTE | 2016-11-18 14:12 | ECHOCARDIOGRAM REPORT ---
*NOTICE TO RECEIVING LIBERTARIAN AGENCY This information is strictly Confidential and protected under [place] law. [place] law prohibits you from making any further disclosure of this information unless further disclosure is expressly permitted by the written consent of the person to whom it pertains or is authorized by law. A general authorization for the release of medical or other information is not sufficient for this purpose. Hospital accepts no responsibility if the information is made available to any other person, INCLUDING THE PATIENT. Interpretation Summary * Name: LONDON KHAN Study Date: 11/18/2016 01:57 PM BP: 112/60 mmHg * Patient Location: C.2T\S\S238\S\2 HR: 61 * : 1940 (M/d/yyy) Gender: Male Height: 72 in * Age: 76 yrs Ethnicity: AA Weight: 165 lb * Ordering Physician: Corey Rodrigez * Referring Physician: Self, Referred * Performed By: Jessica Rodgers RCS * * Reason For Study: AORTIC STENOSIS * BSA: 2.0 m2 * -- Conclusions -- * 1. Normal left ventricle size and hyperdynamic systolic function. EF > 70%. Inferior base appears hypokinetic. Mild to moderate concentric left ventricular hypertrophy. * 2. Severe valvular aortic stenosis. * 3. Limited 2-D echo with spectral Doppler per request. Procedure Details * Limited views were obtained. Left Ventricle * Normal left ventricle size and hyperdynamic systolic function. EF > 70%. Inferior base appears hypokinetic. Mild to moderate concentric left ventricular hypertrophy. Right Ventricle * The right ventricle is normal in size and function. Atria * The left atrial size is normal. * Right atrial size is normal. Mitral Valve * Mitral valve appears structurally normal. Tricuspid Valve * The tricuspid valve anatomy is normal. Aortic Valve * Calcified aortic valve. * Severe valvular aortic stenosis. * Dimensionless index 0.21. * There is no significant aortic regurgitation. Pulmonic Valve * The pulmonic valve is not well visualized. Great Vessels * The aortic root is normal size. Pericardium/Pleural * There is no pericardial effusion. MMode 2D Measurements and Calculations IVSd 1.4 cm IVSs 1.6 cm LVIDd 4.2 cm LVIDs 2.4 cm LVPWd 1.2 cm LVPWs 1.5 cm IVS/LVPW 1.2 FS 43.2 % EDV(Teich) 79.6 ml ESV(Teich) 20.1 ml EF(Teich) 74.7 % EDV(cubed) 75.3 ml ESV(cubed) 13.8 ml EF(cubed) 81.7 % % IVS thick 17.7 % % LVPW thick 30.4 % LV mass(C)d 192.7 grams LV mass(C)dI 98.2 grams/m\S\2 LV mass(C)s 128.1 grams LV mass(C)sI 65.3 grams/m\S\2 SV(Teich) 59.4 ml SI(Teich) 30.3 ml/m\S\2 SV(cubed) 61.5 ml SI(cubed) 31.3 ml/m\S\2 Ao root diam 3.3 cm Ao root area 8.6 cm\S\2 LA dimension 4.0 cm LA/Ao 1.2 LVOT diam 2.0 cm LVOT area 3.3 cm\S\2 Doppler Measurements and Calculations Ao V2 max 401.4 cm/sec Ao max PG 64.4 mmHg Ao max PG (full) 61.6 mmHg Ao V2 mean 283.7 cm/sec Ao mean PG 36.7 mmHg Ao mean PG (full) 35.4 mmHg Ao V2 VTI 93.9 cm JAYDEN(I,A) 0.70 cm\S\2 JAYDEN(I,D) 0.70 cm\S\2 JAYDEN(V,A) 0.68 cm\S\2 JAYDEN(V,D) 0.68 cm\S\2 LV V1 max PG 2.8 mmHg LV V1 mean PG 1.2 mmHg LV V1 max 83.6 cm/sec LV V1 mean 51.8 cm/sec LV V1 VTI 20.2 cm SV(Ao) 810.0 ml SI(Ao) 412.6 ml/m\S\2 SV(LVOT) 66.0 ml SI(LVOT) 33.6 ml/m\S\2
--- NOTE | 2016-11-18 14:15 | Procedure Note ---
Pre-Mod Sedation Assessment General Date of Moderate Sedation: Nov 18, 2016. Vital Signs: Vital Signs Past 12 Hours Date Time Temp Pulse Resp B/P Pulse Ox O2 Delivery O2 Flow Rate FiO2 11/18/16 12:51 36.4 64 20 112/60 98 Room Air 11/18/16 11:20 36.4 64 20 112/60 98 Room Air 11/18/16 07:35 37.0 54 22 110/69 97 Room Air 11/18/16 04:28 36.5 50 19 112/66 96 Room Air 11/18/16 04:00 Room Air Review Cardiovascular: regular rate, rhythm, + systolic murmur Abdomen: normal bowel sounds, non tender, soft Lungs: lungs clear Pre-Sedation Airway Assessment Oral Cavity: WNL Short Thick Neck: No Hx of Sleep Apnea: No Smoking Status: Never Smoker Procedure Planning Contraindications-for Mod Sed: None Yes Notes The planned sedation has been discussed with the patient and consent obtained. I have identified the patient, determined the appropriateness of sedation and have assessed the patient immediately prior to the procedure. All medicine(s) and interventions are by my order.
--- NOTE | 2016-11-18 14:20 | CARDIOLOGY CONSULTATION ---
DATE OF CONSULTATION: 11/18/2016 TIME: 12:53 p.m. CONSULTING PHYSICIAN: Dr. Nathaniel Forde. REASON FOR CONSULTATION: Chest pain, history of CAD and CABG. PRIMARY LACING OPERATOR: Dr. David Celaya. HISTORY OF PRESENT ILLNESS: Mr. Wiley is a very pleasant 76-year-old gentleman, who presented to [facility] on 11/17/2016 with chest discomfort. He has a history significant for multivessel [place] [facility] [place] significant aortic stenosis, carotid artery stenosis status post carotid endarterectomy, TIA, dyslipidemia, hypertension. Yesterday at approximately 11:00 a.m. while walking around [place] he had a ludy vu type feeling. He has been experiencing lightheadedness and dyspnea with exertion and decreased exercise tolerance overall over the past year. He then developed a heaviness/pressure type feeling in the lower substernal area that radiated to his left chest. It was worsened by moving his torso from left to right. This pain progressed and was accompanied by shortness of breath. Because the pain did not resolve and continued to get worse, he came to the Emergency Department. He did have a sublingual nitroglycerin, which he believes improved the pain slightly; however, it continued until he fell asleep. He estimates that the whole episode lasted 10-12 hours. Despite this, he has had negative cardiac enzymes. He has not ever had this type of chest discomfort before. He did have a CABG x3 as noted above and did not have the angina before that. He walks on a daily basis, but has noted that his exercise tolerance has decreased. He has been having dyspnea with exertion, lightheadedness and actually had a syncopal episode a few weeks ago. He had diarrhea with cramping sensations and had a syncopal episode at that time. Although he has not had other syncopal episodes, he does have lightheadedness at times when standing. He denies melena, hematochezia, hematuria or other bleeding. He denies fevers, chills or abdominal pain, nausea or vomiting in the past several days. He has a history of TIA, but no new stroke or TIA symptoms. He has a history of chronic lower extremity swelling, which is at its best level now in the past one year. REVIEW OF SYSTEMS: As above and review of systems otherwise negative. PAST MEDICAL HISTORY: 1. CABG x3 in September of 2004 including a GUADALUPE to LAD, left radial artery graft to circumflex and SVG to PDA. 2. Peripheral arterial disease. 3. Dyslipidemia. 4. Carotid artery stenosis status post left carotid endarterectomy, hypertension, aortic stenosis, acid reflux, hiatal hernia, nephrolithiasis. 5. TIA. HOME MEDICATIONS: Include aspirin 81 mg daily, Lipitor 40 mg daily, Plavix 75 mg daily, fish oil 1 cap b.i.d., levothyroxine 25 mcg daily, metoprolol succinate 25 mg daily, omeprazole 20 mg daily, Flomax 0.4 mg daily. ALLERGIES: INCLUDE CLINDAMYCIN AND RANITIDINE. SOCIAL HISTORY: Denies tobacco, alcohol or drug abuse. He is and lives with his . He has 3 sons. 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 He is unaccompanied in his hospital room. FAMILY HISTORY: No known premature CAD. He has a brother with diabetes. PHYSICAL EXAMINATION: VITAL SIGNS: Temperature 36.4 degrees, heart rate 64 beats per minute, respiration rate 20, blood pressure 112/60 mmHg. Oxygen saturation 98% on room air, weight 74.9 kg. GENERAL: No acute distress. He is alert and oriented. HEENT: Anicteric sclerae. NECK: No appreciable JVD. Carotid bruits versus radiation of cardiac murmur bilaterally. Normal carotid upstrokes bilaterally. CARDIAC: PMI nonpalpable. There was no ventricular heave. Regular, normal S1, soft S2. 3/6 late peaking systolic ejection murmur best heard at the right upper sternal border. No rubs or gallops. LUNGS: Clear to auscultation bilaterally without wheezes, rales or rhonchi. ABDOMEN: Soft, nontender, nondistended, normoactive bowel sounds, no bruits noted. EXTREMITIES: 2+ right radial pulse. Left radial artery, status post excision for CABG. 1+ dorsalis pedis pulse bilaterally. No cyanosis or edema. No palpable cords. PSYCHIATRIC: Affect appears appropriate. LABORATORY DATA: Troponin undetectable x4. Sodium 142, potassium 3.5, BUN 15, creatinine 1.2, glucose 89. White blood cell count 9.1, hemoglobin 13.7, platelets 151. INR on 10/29/[address] angiogram of the chest performed on 10/31/2016 report reviewed. No aortic dissection. No acute findings within the chest. Chest x-ray report reviewed. No acute cardiopulmonary abnormality. ECG upon presentation personally reviewed. Sinus rhythm at 72 beats per minute. Right atrial enlargement. Nonspecific ST abnormality. Repeat ECG done this morning personally reviewed demonstrating sinus bradycardia at 50 beats per minute. Otherwise, normal ECG. Telemetry personally reviewed. No arrhythmia. Echocardiogram performed 11/03/2016 in the office, report reviewed. Normal LV wall motion and systolic function. EF 60%-65%. Mild LVH. Type 1 diastolic dysfunction. Severe aortic stenosis reported with a maximum aortic velocity of 3.9 m/sec and LVOT velocity of 0.87 m/sec, mean aortic valve gradient of 37 mmHg. The valve area was measured as 0.72 cm2. ASSESSMENT AND PLAN: 1. Chest pain: Chest pain appeared to worsen when twisting his torso. It is not likely related to ischemic heart disease or his aortic stenosis given 10-12 hours with pain with negative cardiac markers. He is currently chest pain free. 2. Symptomatic severe aortic stenosis: He has decreased exercise tolerance, had a recent episode of syncope, and has dyspnea with exertion and lightheadedness. This is concerning for symptomatic severe aortic stenosis. A limited repeat echo will be done today given the fact that he did have 10-12 hours of chest discomfort; however, we had a long discussion regarding potential for aortic valve replacement. His primary attacher, Dr. David Celaya was also contacted via telephone. We were all in agreement to pursue consultation with CT surgery as an outpatient. The patient prefers to undergo cardiac catheterization today as he is n.p.o. Risks and benefits were discussed in detail and informed consent was obtained. A femoral approach is recommended given the fact that he does have a GUADALUPE to LAD and has had his left radial artery removed for bypass surgery. 3. Coronary artery disease status post coronary artery bypass grafting x3: No definite angina. Continue antiplatelet therapy. Continue beta-laurel therapy and high intensity statin therapy. Cardiac catheterization as above for preoperative aortic valve replacement. 4. Dyslipidemia: Continue high intensity statin therapy. 5. Hypertension: Continue beta-laurel therapy. He takes metoprolol succinate as an outpatient; however, he is written for metoprolol tartrate here. Therefore, his home medication will be restarted and metoprolol tartrate will be discontinued. 6. Disposition: Cardiology will continue to follow. However, if cardiac catheterization is uneventful, could potentially be discharged home tonight with outpatient followup for CT surgery. Plan of care was discussed with Dr. Smith of the hospitalist service as well as Dr. Celaya, his primary attacher. Highly complex medical issues.
[2016-11-18] MEDS ORDERED: SODIUM CHLORIDE 0.9% 1000ML 250 ML IV PRN (16:03)
[2016-11-18] MEDS ORDERED: SODIUM CHLORIDE 0.9% 1000ML 1,000 ML IV SCH (16:03)
--- NOTE | 2016-11-18 16:07 | Procedure Note ---
Post-Mod Sedation Assessment General Date of Moderate Sedation Nov 18, 2016. Vital Signs: Vital Signs Past 12 Hours Date Time Temp Pulse Resp B/P Pulse Ox O2 Delivery O2 Flow Rate FiO2 11/18/16 15:30 67 16 123/76 95 Room Air 11/18/16 12:51 36.4 64 20 112/60 98 Room Air 11/18/16 11:20 36.4 64 20 112/60 98 Room Air 11/18/16 07:35 37.0 54 22 110/69 97 Room Air 11/18/16 04:28 36.5 50 19 112/66 96 Room Air Review - Discharge Criteria Vital Signs Stable: Yes Alert/Oriented/Conversant: Yes Returned to Baseline Mental St: Yes Nausea Absent/Minimal: Yes Pain/Discomfort/Absent/Minimal: Yes Normal/Baseline Respirations: Yes Active Bleeding?: No
--- NOTE | 2016-11-18 16:27 | Cardiac Catheterization ---
Procedure Note Procedure Date Nov 18, 2016. Pre-Procedure Diagnosis Valvular Disease AUC Score 7 Post-Procedure Diagnosis Severe CAD Procedure(s) Performed Coronary Angiography, Ultrasound Guided Vascular Access, Bypass Graft Angiography Naprapath Dr. Rodrigez Insurance Account Assistant(s) Diogenes Estimated Blood Loss < 20 ml Medication(s) Fentanyl, Versed, Lidocaine 1% Summary of Findings Coronary angiography: 1. Left main coronary artery: The LMCA has a proximal 30-40% stenosis. 2. Left anterior descending: The LAD has a 95% ostial to proximal stenosis with heavy calcified plaque burden. Mid LAD 100%. Distal LAD 40%, beyond the GUADALUPE anastomosis. 3. Circumflex: The circumflex is large and codominant. Proximal circumflex 40% . Large OM1 60% proximal stenosis. Distally there are lateral branches. There is competitive flow noted within radial graft. There appears to be a 60% stenosis proximal circumflex PDA, in some views. 4. Right coronary artery: The RCA is codominant. RCA is atretic. Mid RCA 100 % with bridging right to right collaterals. Coronary bypass graft angiography: 1. GUADALUPE to LAD patent. 2. Free radial graft to OM: The free radial graft appears to originate from the GUADALUPE. It is very small in caliber but patent. 3. SVG to RCA PDA: Patent. Ultrasound guidance: 1. Ultrasound guidance was used for right femoral arterial access, without complication. Procedural notes: 1. LMCA was cannulated with JL4 5 Latvian diagnostic catheter. 2. RCA was cannulated with 5 Latvian JR4 diagnostic catheter. 3. GUADALUPE was cannulated with JR4 diagnostic catheter. 4. SVG to PDA was cannulated with AR 2, 5 Latvian diagnostic catheter. 5. There were no attempts to cross the aortic valve. Impression: 1. Severe multivessel CAD as noted above. 2. Patent GUADALUPE to LAD, free radial arterial graft to OM, SVG to RCA PDA. 3. Documented severe aortic stenosis, with symptoms. Plan: 1. Referral to CT surgery for possible aortic valve replacement. Hemodynamics Rest Ao: 110/61 Final Ao: 113/57 LV: n/a Recommendations valve replacement Specimens None Radiation Exposure (mGy) 1659 mGy. Fluoro time 18.8 min. Contrast (mls) 85 ml Procedural Complication(s) None Disposition PCU ACC Data Cardiac Status Clinical evaluation leading to the procedure CAD Presntation: No Sxs, no angina Anginal Classification: No symptoms (exertional dyspnea) Heart Failure: NYHA Class: CCS II (class II-III) Cardiogenic Shock w/in 24Hrs: No Cardiac Arrest w/in 24Hrs: No Imaging studies past 6 months: Yes (echo) Stress studies past 6 months: No Standard Exercise Stress Test: No Stress Echocardiogram: No Stress Testing w/SPECT MPI: No Cardiac CTA: No Coronary Anatomy Dominant: Co-dominant Left Main (% Stenosis): Ostial (40%) LAD (% Stenosis): Proximal (95%), Mid (100%), Distal (40%) Circumflex (% Stenosis): Proximal (40%) OM1 (% Stenosis): Proximal (60%) L PDA (% Stenosis): Proximal (60%) RCA (% Stenosis): Mid (100%) Grafts - LAD (%): Normal Grafts - Circumflex (%): Normal (but very small in caliber to OM) Grafts - RCA (%): Normal Left Ventricular Angiography EF (%): n/a Diagnostic Physician's Name: Corey Rodrigez MD Status: Elective Closure Device Percutaneous Entry Location: Femoral Closure Device: none - manual hold Recommendations: valve replacement (AVR)
--- NOTE | 2016-11-18 20:07 | Hospitalist Progress Note ---
Hospitalist Progress Note Date of Service Nov 18, 2016. Subjective Pt evaluation today including: conversation w/ patient, conversation w/ family , physical exam, chart review, lab review, review of studies, review of inpatient medication list Patient is doing well post cardiac cath. He is awaiting for the soon coming evening meal. He has no concerns at this time. No chest pain and no SOB. Additional Comments: A 10 system review was performed and all were negative. Positives were placed in the subjective section. Objective Vital Signs Date Time Temp Pulse Resp B/P Pulse Ox O2 Delivery O2 Flow Rate FiO2 11/18/16 19:45 60 17 120/67 99 Room Air 11/18/16 18:45 72 17 104/65 96 Room Air 11/18/16 17:45 71 18 114/65 98 Room Air 11/18/16 17:15 64 17 115/67 97 Room Air 11/18/16 16:45 68 18 120/70 96 Room Air 11/18/16 16:30 68 18 118/74 97 Room Air 11/18/16 16:30 97 Room Air 11/18/16 16:15 67 17 114/70 91 Room Air 11/18/16 16:00 36.6 61 17 123/71 100 Room Air 11/18/16 15:30 67 16 123/76 95 Room Air 11/18/16 12:51 36.4 64 20 112/60 98 Room Air 11/18/16 11:20 36.4 64 20 112/60 98 Room Air 11/18/16 07:35 37.0 54 22 110/69 97 Room Air 11/18/16 04:28 36.5 50 19 112/66 96 Room Air 11/18/16 04:00 Room Air 11/18/16 00:00 Room Air 11/17/16 22:56 36.5 56 19 111/63 95 Room Air 11/17/16 20:59 Room Air 11/17/16 20:08 36.6 65 16 140/82 98 Physical Exam Notes: GEN: Awake, alert, and oriented x 3. Not in acute distress HEENT: Tm's intact, no inflammation, EOMI, PERRLA, MMM Neck: Soft, supple Lungs: CTA b/l, no r/r/w Heart: REG, nrl S1S2 without murmurs, rubs or gallops Abdomen: Soft, NT, ND, + BS EXT: No C/C/E NEURO: CN's II-XII grossly intact, non-focal Skin: warm, dry, no rashes PSYCH: pleasant, cooperative, no signs of significant anxiety or depression. Laboratory Results Last 24 Hours Test 11/17/16 23:18 11/18/16 05:15 11/18/16 11:40 Total Creatine Kinase 50 U/L 48 U/L 50 U/L Creatine Kinase MB 0.8 ng/ml 0.9 ng/ml 0.6 ng/ml Creatine Kinase MB Ratio 1.6 1.9 1.2 Troponin I < 0.015 ng/ml < 0.015 ng/ml < 0.015 ng/ml Assessment and Plan 76 yo male with h/o CAD s/p CABG in 2002 who presents with several hours of chest pressure, normal EKG and negative troponin 1) Chest pain: - Trops neg x3. Cardiac cath completed no new findings or interventions required. - 2) HTN: continue metoprolol - 3) Hyperlipidemia: continue Lipitor anticipate D/C in the am. - DVT prophylaxis: Heparin q8
[2016-11-18] MEDS ORDERED: METOPROLOL SUCC 25MG EXT REL TAB PO SCH (21:00)
[2016-11-18] MEDS: ATORVASTATIN 40 MG TAB PO SCH (22:20)
[2016-11-18] MEDS: CLOPIDOGREL BISULFATE 75 MG TAB PO SCH (22:21)
[2016-11-18] MEDS: LEVOTHYROXINE 25 MCG TAB PO SCH (22:21)
[2016-11-19 04:15] VITALS: BP 111/57; PULSE 51; TEMP 37; O2SAT 99
[2016-11-19] MEDS: HEPARIN SOD 5000 UNIT/0.5 ML CARP SQ SCH ×2 (06:00→07:06)
[2016-11-19 07:22] VITALS: BP 136/67; PULSE 55; TEMP 36.9; O2SAT 99
[2016-11-19] MEDS: PANTOprazole SOD 40 MG TAB PO SCH (08:35)
[2016-11-19] MEDS: OMEGA-3 (PURIFIED FISH OIL) 1 GM CAP PO SCH (08:35)
[2016-11-19] MEDS: ASPIRIN 81 MG ECTAB PO SCH (08:35)
[2016-11-19] MEDS: TAMSULOSIN HCL 0.4 MG CAP PO SCH (08:35)
[2016-11-19] MEDS: PrednisoLONE ACET 1% OP SUSP 5 ML BTL OP SCH (08:36)
--- NOTE | 2016-11-19 09:31 | CARDIOLOGY PROGRESS NOTE ---
DATE: 11/19/2016 TIME: 08:57 a.m. SUBJECTIVE: Denies chest pain, shortness of breath, syncope, near syncope, or palpitations. He has not had any issues from his right femoral arterial cath site. No bleeding. OBJECTIVE: VITAL SIGNS: Temperature 36.9 degrees, heart rate 55 beats per minute, respiratory rate 16, blood pressure 136/67 mmHg, and oxygen saturation 99% on room air. Weight 76.6 kg. GENERAL: No acute distress. He is alert. NECK: No JVD. CARDIAC EXAM: No ventricular heave, regular. Normal S1 and soft S2. 3/6 late peaking systolic ejection murmur best heard at the right upper sternal border. No rubs or gallops. LUNGS: Clear to auscultation bilaterally without wheezes, rales or rhonchi. ABDOMEN: Soft, nontender, and nondistended. Normoactive bowel sounds. EXTREMITIES: No cyanosis or edema. 2+ right femoral pulse. No erythema or discharge. No hematoma. No significant ecchymosis. PSYCHIATRIC: Affect appears appropriate. MEDICATIONS: Include aspirin 81 mg daily, Plavix 75 mg at bedtime, Lipitor 40 mg at bedtime, heparin 5,000 units subQ q. 8 hours, metoprolol succinate 25 mg at bedtime, levothyroxine 25 mcg daily, Protonix 40 mg daily, and tamsulosin 0.4 mg daily. Cardiac catheterization performed yesterday has been reviewed. Left main coronary artery, 30%-40% stenosis. LAD ostial 95% with a heavy calcified plaque burden. Mid LAD 100%. Distal LAD 40% beyond the GUADALUPE anastomosis. There was a gepya-cu-[id number] caliber diagonal vessel, which was diffusely diseased with 70%-80% CAD. Circumflex is large and codominant. Proximal circumflex is 40%. Large OM1 is 60% proximal. Competitive flow noted within the radial free graft. Proximal circumflex PDA possible 60%. Codominant RCA, which is atretic. Mid RCA 100% with bridging [id number] collaterals. GUADALUPE to LAD patent free radial graft to OM. Very small caliber, but patent SVG to RCA. PDA patent. ECG performed earlier today personally reviewed. Sinus bradycardia at 52 beats per minute. ASSESSMENT AND PLAN: 1. Symptomatic severe aortic stenosis: He has symptoms that could be attributed to severe aortic stenosis. Recommend aortic valve replacement. [place] the [place] [facility] [place], a CT surgery consultation is being [place] [facility] [place]. He may be a TAVR candidate as he has had a prior CABG. 2. Chest pain: Chest pain was likely noncardiac and may have been musculoskeletal as twisting of his torso would trigger the pain. He attended 12 hours with the pain with negative cardiac markers. 3. Coronary artery disease, status post CABG x3. No definite angina. He appears euvolemic. Continue antiplatelet therapy as well as beta laurel and high intensity statin therapy. Cardiac catheterization as noted above. Would treat his coronary artery disease medically at this point. 4. Dyslipidemia: Continue high intensity statin therapy. 5. Hypertension: Blood pressure well controlled. Continue metoprolol succinate. 6. Disposition: From a cardiac perspective, can be discharged today. Recommend cardiac catheterization femoral approach. Discharge instructions included in his discharge paperwork. This was discussed with Dr. Smith, who plans on arranging for this when he prepares his discharge. Follow up with Dr. Celaya as scheduled.
--- NOTE | 2016-11-19 09:44 | Discharge Instructions ---
Discharge Instructions Admission Reason for Admission: Chest Pain,Cad Discharge Discharge Diagnosis / Problem: Coronary artery disease, aortic stenosis. Discharge Goals Goal(s): Decrease discomfort, Improve disease control Activity Recommendations Activity Limitations: as noted below . Instructions / Follow-Up Instructions / Follow-Up ACTIVITY RECOMMENDATIONS: It is common to feel weak and fatigue for a few days. * Do not drive or operate any motorized equipment for the next three days. * Limit stair usage (2 or 3 trips a day only) for the next three days. * Do not lift anything heavier than 10 pounds for the next three days. * Do not engage in vigorous exercise or any sports for the next five days. * You may shower the day after your procedure, but do not immerse the area for three days. Cleanse the site gently with soap and water. SPECIAL CARE INSTRUCTIONS: * You may replace the pressure dressing or band-aid the morning after the procedure. * After your procedure, it is normal to have a small bruise or small lump at the site. Examine your site daily for any change in the bruise or lump, redness, swelling, drainage or numbness. Notify your doctor if any change. BLEEDING: * If there is a small amount of bleeding at the site, lie down and apply firm pressure with a clean cloth for ten minutes. When the bleeding stops, lie quietly keeping the procedure limb straight for six hours. Notify your doctor as soon as possible. * If the bleeding does not stop after ten minutes or if there is a large amount of bleeding or spurting, call 911 immediately. Continue to lie down and hold firm pressure until help arrives. SKIN IRRITATION: * You may experience some redness and/or swelling in the area where radiation was administered. If any skin irritation occurs, please contact your family physician. FOLLOW UP VISIT: Keep any scheduled doctor appointments. Current Hospital Diet Patient's current hospital diet: AHA Diet (Heart Healthy) Discharge Diet Recommended Diet: AHA Diet (Heart Healthy) Procedures Procedures Performed: Cardiac cath. Pending Studies Studies pending at discharge: no Medical Emergencies . Who to Call and When: Medical Emergencies: If at any time you feel your situation is an emergency, please call 911 immediately. . Non-Emergent Contact Non-Emergency issues call your: Primary Care Provider, [employer] . . "Provider Documentation" section prepared by Roldan Smith. VTE Core Measure Inpt VTE Proph given/why not?: Unfractionated heparin SQ
[2016-11-19 10:22] VITALS: BP 136/67; PULSE 55; TEMP 36.9; O2SAT 99
--- NOTE | 2016-11-24 15:22 | Discharge Summary ---
Discharge Summary Admission Date: Nov 17, 2016 at 18:52 Discharge Date: Nov 19, 2016 Discharge Disposition: Home Principal Diagnosis: chest pain Mi ruled out, non-cardiac. Problems/Secondary Diagnoses: CAD, HTN Immunizations: Have You Had Influenza Vaccine: Yes Influenza Vaccine Date: Aug 03, 2011 History of Tetanus Vaccine?: Yes Tetanus Immunization Date: Dec 21, 2011 History of Pneumococcal: Yes Pneumococcal Date: Aug 03, 2011 History of Hepatitis B Vaccine: Yes Hepatitis Immunization Date: Dec 21, 2011 Procedures: Cardiac cath. 11/18/16 Consultations: Cardiology, Dr. Corey Rodrigez M.D. Medication Reconciliation Continued Medications: Aspirin Enteric Coated (Ecotrin Or Generic *) 81 Mg Ectab 81 MG PO QAM, 0 Refills Atorvastatin (Lipitor) 40 Mg Tab 40 MG PO HS, 0 Refills Clopidogrel (Plavix) 75 Mg Tab 75 MG PO HS, 0 Refills Fish Oil (Manteno-3) 1 Ea Cap 1 CAP PO BID, 0 Refills Levothyroxine Sodium (Levothyroxine Sodium) 25 Mcg Tab 25 MCG PO QPM, #30 Metoprolol Tartrate (Lopressor) (Lopressor) 25 Mg Tab 25 MG PO HS, 0 Refills Multivitamins/Minerals (Mvi With Minerals) Tab 1 TAB PO QAM, 0 Refills Omeprazole (Prilosec) 20 Mg Capcr 20 MG PO QAM, 0 Refills Prednisolone Acetate (Prednisolone Acetate) 75 Drops/5 Ml Susp 1 DROP OP QID, #10 Tamsulosin Hcl (Flomax) 0.4 Mg Cap 0.4 MG PO QAM, CAP Discharge Exam A 10 system review was performed and all were negative. Positives were placed in the subjective section. GEN: Awake, alert, and oriented x 3. Not in acute distress HEENT: Tm's intact, no inflammation, EOMI, PERRLA, MMM Neck: Soft, supple Lungs: CTA b/l, no r/r/w Heart: REG, nrl S1S2 without murmurs, rubs or gallops Abdomen: Soft, NT, ND, + BS EXT: No C/C/E NEURO: CN's II-XII grossly intact, non-focal Skin: warm, dry, no rashes PSYCH: pleasant, cooperative, no signs of significant anxiety or depression. Hospital Course 76 yo male with h/o CAD s/p CABG in 2002 presented with several hours of chest pressure, normal EKG and negative troponin. He had neg trop x3. Given the patients history of CAD, it was felt that he should undergo cardiac catheterization. The patient agreed and this was performed on 11/18/16. Please refer to the complete dictated cath report for details. Overall, though, there were no new findings. It then was felt that the patient was not having cardiac chest pain. He was then discharged to home the following morning. DVT prophylaxis: Heparin q8 Total Time Spent: Greater than 30 minutes This includes examination of the patient, discharge planning, medication reconciliation, and communication with other providers. Discharge Instructions Please refer to the electronic Patient Visit Report (Discharge Instructions) for additional information. Follow-Up PCP in 5-7 days. Cardiology as they recommend please call office for instruction on appointment.
== END 2016-11-19 10:45 | disposition home or self-care (01) ==
LOC: ENRESERVDT → ENRESERVTM → C.EDB 15:54 → C.2T 18:52
PROVIDERS: ADMIT Internal Medicine; ATTEND Internal Medicine
DX: R07.89 Other chest pain (principal); I25.10 Atherosclerotic heart disease of native coronary artery without angina pectoris; I35.0 Nonrheumatic aortic (valve) stenosis; I10 Essential (primary) hypertension; E78.5 Hyperlipidemia, unspecified; I73.9 Peripheral vascular disease, unspecified; K21.9 Gastro-esophageal reflux disease without esophagitis; Z51.81 Encounter for therapeutic drug level monitoring; Z79.899 Other long term (current) drug therapy; Z79.82 Long term (current) use of aspirin; Z79.02 Long term (current) use of antithrombotics/antiplatelets; Z95.1 Presence of aortocoronary bypass graft; Z86.73 Personal history of transient ischemic attack (TIA), and cerebral infarction without residual deficits; Z83.3 Family history of diabetes mellitus

== ENCOUNTER → 2017-01-28 | Outpatient (CLI) | payer BC ==
[~2017-01-28] MED LIST changes: +ASPI81TA28 PO; +LEVO25TA5 PO; -ONDA4TAB10 SL; +PRDFOPS OP
--- NOTE | 2017-01-28 17:43 | DIAGNOSTIC IMAGING REPORT ---
SI JOINTS 3 OR MORE VIEWS CLINICAL HISTORY: Left gluteal pain. COMPARISON STUDY: CT of the chest, abdomen and pelvis October 31, 2016. FINDINGS: The sacroiliac joints are intact without evidence for ankylosis. No fracture or suspicious lesion is identified. Symphysis pubis is intact. There are phleboliths within the pelvis. There are soft tissue calcifications adjacent to each hip. These are chronic. IMPRESSION: 1. No significant abnormality of the sacroiliac joints. 2. Soft tissue calcifications adjacent to each hip which are chronic and likely due to muscular origin/insertion. Electronically signed by: Pablo Nicole M.D. 01/28/2017 5:42 PM Dictated Date/Time: 01/28/2017 5:40 PM
== END | disposition home or self-care (01) ==
LOC: C.RAD 17:10
PROVIDERS: ATTEND Family Medicine
DX: M79.1 Myalgia (principal)

== ENCOUNTER 2017-02-23 10:32 | Emergency (ER) | payer BC ==
[~2017-02-23] VITALS: Ht 180.3 cm; Wt 74.0 kg
[~2017-02-23 10:32] MED LIST changes: -ASPI81TA28 PO
[2017-02-23 10:37] VITALS: TEMP 36.6; Ht 180.3 cm; Wt 74.0 kg
[2017-02-23 11:52] LABS: BASO % 0.6 %; BASO ABS # 0.05 K/uL (0-0.2); COMPLETE YES; EOS % 2.4 %; HEMATOCRIT 40.1 % (42-52); IG% 0.1 %; LYMPH ABS # 1.48 K/uL (1.2-3.4); MEAN CELL VOLUME 98.3 fL (80-100); MEAN CORPUSCULAR HEMOGLOBIN 32.8 pg (25-34); MEAN CORPUSCULAR HGB CONC 33.4 g/dl (32-36); MEAN PLATELET VOLUME 11.1 fL (7.4-10.4); MONO % 6.9 %; PLATELET COUNT 135 K/uL (130-400); RED BLOOD COUNT 4.08 M/uL (4.7-6.1); WHITE BLOOD COUNT 8.71 K/uL (4.8-10.8)
[2017-02-23 12:03] LABS: BUN/CREATININE RATIO 16.5 (10-20); CALCIUM 9.5 mg/dl (8.5-10.1); CREATININE 1.1 mg/dl (0.60-1.40); POTASSIUM 3.9 mmol/L (3.5-5.1)
--- NOTE | 2017-02-23 12:07 | EMERGENCY ROOM VISIT NOTE ---
History Report prepared by Ruth: Denis Hill Under the Supervision of: Dr. David Wilkerson D.O. First contact with patient: 11:51 Chief Complaint: DIZZY Stated Complaint: VALVE REPLACEMENT 2/WKS AGO, DIZZINESS Nursing Triage Summary: Patient states he felt fine this morning and then approx 8:30 he started to feel dizzy. States dizziness increased when leaning forward. 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 Patient states he had surgery 12/25/16 for aortic valve replacement. Patient is taking Plavix. Patient reports feeling a hard painful lump on his upper lateral forearm a few days ago and in the last 2 days he has had multiple bruises show up on his right anterior forarm as well. Pt states he also has a lot of gas "From both ends". Pt visitor states this morning patient had difficulty taking deep breaths. Pt states he had to force deep breaths, but they were not painful and he denies this symptoms at this time. Orthostatic completed. Pt states he did not feel dizzy lying flat, felt dizzy sitting up but then it went away and upon standing he states "I just don't feel stable". History of Present Illness The patient is a 76 year old male who presents to the Emergency Room with complaints of an episode of dizziness that occurred around 0830 this morning. He says that he felt like passing out, and he had trouble ambulating or standing up. The episode lasted a few minutes. He says that he was just finishing breakfast at the time of the episode. He felt fine prior to the episode. The patient states that bending over makes the dizziness worse, and sitting down makes the dizziness better. When sitting down, he says that he is still a bit off but the dizziness almost fully goes away. He also notes that he had pain that went down both sides of his legs. The patient denies any nausea, vomiting, back pain, melena, hematochezia, or eating or drinking difficulties. The patient states that he has been having abdominal discomfort lately, but he says it is "from gas". The discomfort is relieved by passing gas or drinking misael corey. The patient had a TAVR at [place] in early December, on both groins. He says that it went well, and he has not been on any new medications after the surgery. He denies any swelling or pain at the groin. The patient is on Plavix. He also takes thyroid medication. The patient still has his gallbladder. He has a history of eye surgery, shoulder surgery, knee replacement, and 2 heart surgeries. Source of History: patient, spouse/significant other Onset: Around 0830 this morning Position: other (global - dizziness) Symptom Intensity: lated a few minutes Timing: other (episode) Associated Symptoms: No back pain, No hematochezia, No melena, No nausea, No vomiting Note: Associated symptoms: Had difficulty standing or ambulating during episode. Notes having abdominal discomfort lately, but says it is "from gas". Denies eating or drinking difficulties, or groin pain. Review of Systems See HPI for pertinent positives & negatives. A total of 10 systems reviewed and were otherwise negative. Past Medical & Surgical Medical Problems: (1) CAD (coronary artery disease) (2) Chest pain (3) Kidney stone Surgical Problems: (1) Hx of CABG Family History FH: diabetes mellitus Social History Smoking Status: Never Smoker Alcohol Use: none Drug Use: none Housing Status: lives with family Occupation Status: retired Current/Historical Medications Scheduled Aspirin Enteric Coated (Ecotrin Or Generic *), 81 MG PO QAM Atorvastatin (Lipitor), 40 MG PO HS Clopidogrel (Plavix), 75 MG PO HS Levothyroxine Sodium (Levothyroxine Sodium), 25 MCG PO QPM Metoprolol Tartrate (Lopressor) (Lopressor), 25 MG PO HS Multivitamins/Minerals (Mvi With Minerals), 1 TAB PO QAM Omeprazole (Prilosec), 20 MG PO QAM Prednisolone Acetate (Prednisolone Acetate), 1 DROP OP QID Tamsulosin Hcl (Flomax), 0.4 MG PO QAM Allergies Coded Allergies: Clindamycin (Unverified Allergy, Mild, rash, 02/23/17) Ranitidine (Verified Allergy, Unknown, CONFUSION, 02/23/17) Physical Exam Vital Signs Date Time Temp Pulse Resp B/P Pulse Ox O2 Delivery O2 Flow Rate FiO2 02/23/17 14:39 63 19 118/64 100 Room Air 02/23/17 13:30 62 13 129/64 02/23/17 13:01 61 02/23/17 13:00 61 14 126/59 02/23/17 12:40 63 19 127/62 100 Room Air 02/23/17 12:00 64 17 145/66 95 Room Air 02/23/17 10:53 69 02/23/17 10:52 68 22 130/70 100 78 142/69 78 134/65 02/23/17 10:37 36.6 71 18 128/71 99 Room Air Pain Rating (0-10): 0 Physical Exam GENERAL: Patient is awake, alert, and in no acute distress. Patient is resting comfortably and showing no signs of anxiety EYES: Slight ptosis in left eye. PERRL. EOMI. EARS, NOSE, MOUTH AND THROAT: The nose is without any evidence of any deformity. Mucous membranes are moist tongue is midline NECK: The neck is nontender and supple. RESPIRATORY: Normal respiratory effort is noted there is no evidence of wheezing rhonchi or rales CARDIOVASCULAR: Regular rate and rhythm noted there no murmurs rubs or gallops normal S1 normal S2 GASTROINTESTINAL: The abdomen is soft. Bowel sounds are present in all quadrants. Abdomen is nontender MUSCULOSKELETAL/EXTREMITIES: There is no evidence of gross deformity full range of motion is noted in the hips and shoulders SKIN: Pedal edema bilaterally. Pulses symmetric in both feet. NEUROLOGIC: Patient is awake alert and oriented x3 strength is symmetric patellar reflexes are 2+ bilaterally Medical Decision & Procedures ER Provider Diagnostic Interpretation: Radiology results as stated below per my review and radiologist interpretation: CHEST ONE VIEW PORTABLE CLINICAL HISTORY: dizziness mental status change COMPARISON STUDY: 11/17/2016 FINDINGS: Lungs remain clear. Prior median sternotomy. Diaphragms are smooth. IMPRESSION: No acute process. Lungs are considered clear. Electronically signed by: Elier Mike M.D. 02/23/2017 12:08 PM Dictated Date/Time: 02/23/2017 12:[address] ABD/PELVIS IV CONTRAST ONLY CLINICAL HISTORY: upper abd pain, recent TAVR procedure COMPARISON STUDY: CT angiography dated 10/31/2016 TECHNIQUE: Following the IV administration of 119 mL of Optiray-320, CT scan of the abdomen and pelvis was performed from the lung bases to the proximal femurs. Images are reviewed in the axial, sagittal, and coronal planes. IV contrast was administered without complication. CT DOSE: 272.24 mGy.cm FINDINGS: Lower chest: The heart is normal in size and configuration, without pericardial effusion. The lung bases and pleural spaces are clear. Liver: The contrast-enhanced liver is normal in size, contour, and attenuation. There is no intrahepatic biliary ductal dilatation. The hepatic veins and portal veins are patent. Gallbladder: Cholelithiasis Spleen: Normal in size and attenuation. Pancreas: Unremarkable. Adrenal glands: Unremarkable. Kidneys: There is bilateral nephrolithiasis. There are bilateral renal hypodensities the largest of which measures 1 cm as located within the upper pole the left kidney. These likely represent cysts. Bowel: There are no transition zones indicate bowel obstruction. The appendix appears normal. There is colonic diverticulosis. There are no acute peridiverticular inflammatory changes. Peritoneum: There is no intraperitoneal free air or abdominal ascites. Vasculature: There is mild ectasia of the infrarenal abdominal aorta Adenopathy: None. Pelvic viscera: The bladder, and pelvic viscera are unremarkable. Skeletal structures: No destructive osseous lesions are seen. IMPRESSION: 1. No evidence of bowel obstruction. No evidence of free air 2. Bilateral nephrolithiasis 3. Cholelithiasis 4. Normal appendix 5. No evidence of acute diverticulitis Electronically signed by: Chuy Huerta M.D. 02/23/2017 12:26 PM Dictated Date/Time: 02/23/2017 12:[address] OF THE HEAD WITHOUT CONTRAST CLINICAL HISTORY: Vertigo. Weakness. COMPARISON STUDY: Head CT October 31, 2016. CT DOSE: 679.75 mGycm TECHNIQUE: Helical axial images of the head were obtained without IV contrast. Automated exposure control was utilized for the study. FINDINGS: A metallic density medial to the left globe is again noted. This is unchanged. Contrast on this exam is from recent contrast-enhanced abdominal CT. Ventricular system is stable. Basilar cisterns are patent. Small intermediate attenuation bilateral subdural hematomas are similar in size to exam of October 31, 2016. The left subdural hematoma measures 8 mm in thickness. There may be thickening or a small amount of subdural blood along the tentorium as well. There is no evidence for herniation. No findings are noted to suggest acute dural sinus thrombosis or acute territorial infarct. There is no calvarial fracture. Visualized portions of the sinuses and mastoid air cells are clear. IMPRESSION: 1. Small intermediate attenuation bilateral subdural hematomas, similar in size to exam of October 31, 2016. 2. No CT evidence of acute infarction. Electronically signed by: Pablo Nicole M.D. 02/23/2017 2:14 PM Dictated Date/Time: 02/23/2017 2:03 PM Laboratory Results 02/23/17 11:00 Red Blood Count 4.08, Mean Corpuscular Volume 98.3, Mean Corpuscular Hemoglobin 32.8, Mean Corpuscular Hemoglobin Concent 33.4, Mean Platelet Volume 11.1, Neutrophils (%) (Auto) 73.0, Lymphocytes (%) (Auto) 17.0, Monocytes (%) (Auto) 6.9, Eosinophils (%) (Auto) 2.4, Basophils (%) (Auto) 0.6, Neutrophils # (Auto) 6.36, Lymphocytes # (Auto) 1.48, Monocytes # (Auto) 0.60, Eosinophils # (Auto) 0.21, Basophils # (Auto) 0.05 02/23/17 11:00 Test 02/23/17 11:00 02/23/17 11:47 02/23/17 11:50 White Blood Count 8.71 K/uL (4.8-10.8) Red Blood Count 4.08 M/uL (4.7-6.1) Hemoglobin 13.4 g/dL (14.0-18.0) Hematocrit 40.1 % (42-52) Mean Corpuscular Volume 98.3 fL (80-100) Mean Corpuscular Hemoglobin 32.8 pg (25-34) Mean Corpuscular Hemoglobin Concent 33.4 g/dl (32-36) Platelet Count 135 K/uL (130-400) Mean Platelet Volume 11.1 fL (7.4-10.4) Neutrophils (%) (Auto) 73.0 % Lymphocytes (%) (Auto) 17.0 % Monocytes (%) (Auto) 6.9 % Eosinophils (%) (Auto) 2.4 % Basophils (%) (Auto) 0.6 % Neutrophils # (Auto) 6.36 K/uL (1.4-6.5) Lymphocytes # (Auto) 1.48 K/uL (1.2-3.4) Monocytes # (Auto) 0.60 K/uL (0.11-0.59) Eosinophils # (Auto) 0.21 K/uL (0-0.5) Basophils # (Auto) 0.05 K/uL (0-0.2) RDW Standard Deviation 50.3 fL (36.4-46.3) RDW Coefficient of Variation 14.1 % (11.5-14.5) Immature Granulocyte % (Auto) 0.1 % Immature Granulocyte # (Auto) 0.01 K/uL (0.00-0.02) Prothrombin Time 10.7 SECONDS (9.0-12.0) Prothromb Time International Ratio 1.0 (0.9-1.1) Activated Partial Thromboplast Time 26.2 SECONDS (21.0-31.0) Partial Thromboplastin Ratio 1.0 Anion Gap 7.0 mmol/L (3-11) Est Creatinine Clear Calc Drug Dose 60.7 ml/min Estimated GFR () 75.7 Estimated GFR (Non- 65.3 BUN/Creatinine Ratio 16.5 (10-20) Calcium Level 9.5 mg/dl (8.5-10.1) Total Bilirubin 1.1 mg/dl (0.2-1) Aspartate Amino Transf (AST/SGOT) 17 U/L (15-37) Alanine Aminotransferase (ALT/SGPT) 21 U/L (12-78) Alkaline Phosphatase 85 U/L (45-117) Total Creatine Kinase 69 U/L (39-308) Creatine Kinase MB 0.9 ng/ml (0.5-3.6) Creatine Kinase MB Ratio 1.3 (0-3.0) Total Protein 7.9 gm/dl (6.4-8.2) Albumin 3.9 gm/dl (3.4-5.0) Globulin 4.0 gm/dl (2.5-4.0) Albumin/Globulin Ratio 1.0 (0.9-2) Thyroid Stimulating Hormone (TSH) 2.490 uIu/ml (0.300-4.500) Bedside Troponin I 0.000 ng/ml (0-0.045) Urine Color YELLOW Urine Appearance CLEAR (CLEAR) Urine pH 7.0 (4.5-7.5) Urine Specific Delmar 1.008 (1.000-1.030) Urine Protein NEG (NEG) Urine Glucose (UA) NEG (NEG) Urine Ketones NEG (NEG) Urine Occult Blood NEG (NEG) Urine Nitrite NEG (NEG) Urine Bilirubin NEG (NEG) Urine Urobilinogen NEG (NEG) Urine Leukocyte Esterase NEG (NEG) Urine WBC (Auto) 0 /hpf (0-5) Urine RBC (Auto) 0-4 /hpf (0-4) Urine Hyaline Casts (Auto) 0 /lpf (0-5) Urine Epithelial Cells (Auto) 0-5 /lpf (0-5) Urine Bacteria (Auto) NEG (NEG) Urine Sperm (Auto) PRESENT (NOT PRESENT) Laboratory results per my review. ECG Indication: other (dizziness) Rate (beats per minute): 65 Rhythm: normal sinus Findings: no ectopy, other (no acute ST segment abnormalities) Comparison ECG Date: NC interval has shortened compared to October 30 2016 ED Course 1151: The patient was evaluated in room A10. A complete history and physical examination were performed. 1237: I reevaluated and updated the patient. 1246: I discussed the case with Dr. Celaya - [facility] cardiology. 1430: Upon reevaluation, the patient is resting comfortably. I discussed the results and treatment plan with him. He verbalized agreement of the treatment plan. He was discharged home. Medical Decision Prior records/ancillary studies reviewed. Triage Nursing notes reviewed. Differential diagnosis: Etiologies such as benign positional vertigo, dehydration, hypovolemia, anemia, tumor, infection, hypoglycemia, electrolyte abnormalities, cardiac sources, intracerebral event, toxicologic, neurologic, as well as others were entertained. The patient is a 76-year-old male who presented to the emergency department for an evaluation of dizziness. The patient has a history of subdural hematoma in the past but also has a recent history of a TAVR procedure for aortic stenosis. The patient was found have an EKG that did show a shortened NC interval. He's had previous EKGs it looks similar. He did not have any cardiac dysrhythmias. CT the head did reveal no changes from previous but did show persistence of the subdural hematoma noted previously. I discussed the patient's laboratory and radiographic studies with him. I also discussed his case with his primary drier take off tender. The patient was feeling much better on subsequent reevaluation. He did not appear to have orthostasis on vital sign monitoring. He was encouraged to rest and avoid any strenuous activity. He was also encouraged to continue all medications as prescribed. He was also encouraged to follow-up with his family doctor this week for reevaluation but return to the emergency department immediately if he develop other symptoms such as severe headache severe nausea vomiting difficulty ambulating syncope or if any other worrisome symptoms develop. Consults Time Called: [id number] Consulting Physician: Dr. Yomi MACHADO cardiology Returned Call: [phone] I discussed the case with Dr. Yomi MACHADO cardiology. Impression Primary Impression: Dizziness Additional Impression: Chronic subdural hematoma Scribe Attestation The scribe's documentation has been prepared under my direction and personally reviewed by me in its entirety. I confirm that the note above accurately reflects all work, treatment, procedures, and medical decision making performed by me. Departure Information Dispostion Home / Self-Care Referrals No Doctor, Assigned (PCP) Forms HOME CARE DOCUMENTATION FORM, IMPORTANT VISIT INFORMATION Patient Instructions ED Dizziness Domonique WYLIE [facility] Additional Instructions Continue all medications as prescribed. Rest and avoid any strenuous activity. Follow-up with your family doctor soon as possible. Return to the emergency department immediately if symptoms change worsen or the need arises. Problem Qualifiers
[2017-02-23 12:13] LABS: MANUAL MICROSCOPIC REQUIRED? NO; REVIEW REQ? YES; URINE APPEARANCE CLEAR (CLEAR); URINE BILIRUBIN NEG (NEG); URINE COLOR YELLOW; URINE EPITHELIAL CELL AUTO 0-5 /lpf (0-5); URINE NITRITE NEG (NEG); URINE SPECIFIC GRAVITY 1.008 (1.000-1.030); UROBILINOGEN NEG (NEG); ZZUR CULT IF INDIC CLEAN CATCH NO
[2017-02-23 12:13] LABS: CKMB/CK RATIO 1.3 (0-3.0); THYROID STIMULATING HORMONE 2.49 uIu/ml (0.300-4.500)
[2017-02-23] MEDS ORDERED: OPTIRAY 320 IV PRN (12:15)
--- NOTE | 2017-02-23 12:27 | DIAGNOSTIC IMAGING REPORT ---
CT ABD/PELVIS IV CONTRAST ONLY CLINICAL HISTORY: upper abd pain, recent TAVR procedure COMPARISON STUDY: CT angiography dated 10/31/2016 TECHNIQUE: Following the IV administration of 119 mL of Optiray-320, CT scan of the abdomen and pelvis was performed from the lung bases to the proximal femurs. Images are reviewed in the axial, sagittal, and coronal planes. IV contrast was administered without complication. CT DOSE: 272.24 mGy.cm FINDINGS: Lower chest: The heart is normal in size and configuration, without pericardial effusion. The lung bases and pleural spaces are clear. Liver: The contrast-enhanced liver is normal in size, contour, and attenuation. There is no intrahepatic biliary ductal dilatation. The hepatic veins and portal veins are patent. Gallbladder: Cholelithiasis Spleen: Normal in size and attenuation. Pancreas: Unremarkable. Adrenal glands: Unremarkable. Kidneys: There is bilateral nephrolithiasis. There are bilateral renal hypodensities the largest of which measures 1 cm as located within the upper pole the left kidney. These likely represent cysts. Bowel: There are no transition zones indicate bowel obstruction. The appendix appears normal. There is colonic diverticulosis. There are no acute peridiverticular inflammatory changes. Peritoneum: There is no intraperitoneal free air or abdominal ascites. Vasculature: There is mild ectasia of the infrarenal abdominal aorta Adenopathy: None. Pelvic viscera: The bladder, and pelvic viscera are unremarkable. Skeletal structures: No destructive osseous lesions are seen. IMPRESSION: 1. No evidence of bowel obstruction. No evidence of free air 2. Bilateral nephrolithiasis 3. Cholelithiasis 4. Normal appendix 5. No evidence of acute diverticulitis Electronically signed by: Chuy Huerta M.D. 02/23/2017 12:26 PM Dictated Date/Time: 02/23/2017 12:22 PM
[2017-02-23 13:03] LABS: PROTHROMBIN TIME (PATIENT) 10.7 SECONDS (9.0-12.0)
--- NOTE | 2017-02-23 14:15 | DIAGNOSTIC IMAGING REPORT ---
CT OF THE HEAD WITHOUT CONTRAST CLINICAL HISTORY: Vertigo. Weakness. COMPARISON STUDY: Head CT October 31, 2016. CT DOSE: 679.75 mGycm TECHNIQUE: Helical axial images of the head were obtained without IV contrast. Automated exposure control was utilized for the study. FINDINGS: A metallic density medial to the left globe is again noted. This is unchanged. Contrast on this exam is from recent contrast-enhanced abdominal CT. Ventricular system is stable. Basilar cisterns are patent. Small intermediate attenuation bilateral subdural hematomas are similar in size to exam of October 31, 2016. The left subdural hematoma measures 8 mm in thickness. There may be thickening or a small amount of subdural blood along the tentorium as well. There is no evidence for herniation. No findings are noted to suggest acute dural sinus thrombosis or acute territorial infarct. There is no calvarial fracture. Visualized portions of the sinuses and mastoid air cells are clear. IMPRESSION: 1. Small intermediate attenuation bilateral subdural hematomas, similar in size to exam of October 31, 2016. 2. No CT evidence of acute infarction. Electronically signed by: Pablo Nicole M.D. 02/23/2017 2:14 PM Dictated Date/Time: 02/23/2017 2:03 PM
[2017-02-23 14:39] VITALS: BP 118/64; PULSE 63; O2SAT 100
[2017-08-28] MEDS ORDERED: ASPI81TA28 PO (18:23)
== END 2017-02-23 14:55 | disposition home or self-care (01) ==
LOC: C.EDB 10:34 → C.EDA 14:55
DX: R42 Dizziness and giddiness (principal); I62.03 Nontraumatic chronic subdural hemorrhage; Z98.890 Other specified postprocedural states; Z95.2 Presence of prosthetic heart valve; Z79.01 Long term (current) use of anticoagulants; Z79.899 Other long term (current) drug therapy; Z96.659 Presence of unspecified artificial knee joint; I25.10 Atherosclerotic heart disease of native coronary artery without angina pectoris; Z87.442 Personal history of urinary calculi; Z95.1 Presence of aortocoronary bypass graft; Z83.3 Family history of diabetes mellitus; Z79.82 Long term (current) use of aspirin

== ENCOUNTER → 2017-10-21 | Outpatient (CLI) | payer BC ==
[~2017-10-21] MED LIST changes: -ASPEC81 PO; +ASPI81TA28 PO; -OMEG10007 PO; +ONDA4TAB10 SL; +POLY335019 PO; -PRDFOPS OP; +PROB1TAB16 PO; +PSYL58.636 PO
--- NOTE | 2017-10-21 10:13 | DIAGNOSTIC IMAGING REPORT ---
CHEST 2 VIEWS ROUTINE CLINICAL HISTORY: COUGH dyspnea COMPARISON STUDY: 08/28/2017 FINDINGS: Pre-existing findings of a prior median sternotomy and stent placement. Lungs are considered clear. No focal infiltrative changes. IMPRESSION: Chronic and postoperative change. No acute process. The above report was generated using voice recognition software. It may contain grammatical, syntax or spelling errors. Electronically signed by: Elier Mike M.D. 10/21/2017 10:11 AM Dictated Date/Time: 10/21/2017 10:11 AM
== END | disposition home or self-care (01) ==
LOC: C.RAD1850 10:00
PROVIDERS: ATTEND Student in an Organized Health Care Education/Training Program
DX: R05 Cough (principal); R06.00 Dyspnea, unspecified

== ENCOUNTER → 2018-03-12 | Outpatient (CLI) | payer BC ==
[~2018-03-12] MED LIST changes: -ONDA4TAB10 SL; -POLY335019 PO; -PROB1TAB16 PO; -PSYL58.636 PO
== END | disposition home or self-care (01) ==
LOC: C.RDSM 16:17
PROVIDERS: ATTEND Family Medicine Sports Medicine
DX: M25.511 Pain in right shoulder (principal)

== ENCOUNTER 2018-03-17 14:01 | Emergency (ER) | payer BC ==
[~2018-03-17] VITALS: Ht 180.3 cm; Wt 74.0 kg
[2018-03-17 14:07] VITALS: TEMP 36.9; Ht 180.3 cm; Wt 74.0 kg
[2018-03-17] MEDS ORDERED: ONDANSETRON INJ 2 MG/ML 2 ML VIAL IV STA (14:26)
[2018-03-17] MEDS ORDERED: SODIUM CHLORIDE 0.9% 1000ML 1,000 ML IV STA (14:26)
[2018-03-17] MEDS ORDERED: MoRPHine SULFATE 2 MG/ML CARP IV STA (14:26)
[2018-03-17] MEDS ORDERED: PROB1TAB16 PO (15:07)
[2018-03-17] MEDS ORDERED: PSYL58.636 PO (15:07)
[2018-03-17] MEDS ORDERED: POLY335019 PO (15:07)
[2018-03-17] MEDS ORDERED: MoRPHine SULFATE 4 MG/ML 1 ML CARP\\VIAL ONE (15:13)
[2018-03-17 15:20] LABS: BASO % 0.1 %; BASO ABS # 0.02 K/uL (0-0.2); EOS % 0.6 %; HEMATOCRIT 43.4 % (42-52); HEMOGLOBIN 14.9 g/dL (14.0-18.0); IG# 0.04 K/uL (0.00-0.02); LYMPH % 2.7 %; LYMPH ABS # 0.44 K/uL (1.2-3.4); MEAN CELL VOLUME 94.1 fL (80-100); MEAN CORPUSCULAR HEMOGLOBIN 32.3 pg (25-34); MEAN CORPUSCULAR HGB CONC 34.3 g/dl (32-36); MONO % 2.2 %; MONO ABS # 0.35 K/uL (0.11-0.59); NEUT % 94.2 %; NEUT ABS # 15.24 K/uL (1.4-6.5); PLATELET COUNT 136 K/uL (130-400); RED CELL DISTRIBUTION WIDTH SD 48.1 fL (36.4-46.3); WHITE BLOOD COUNT 16.19 K/uL (4.8-10.8)
[2018-03-17 15:41] LABS: PTT PATIENT 23.5 SECONDS (21.0-31.0)
--- NOTE | 2018-03-17 15:50 | DIAGNOSTIC IMAGING REPORT ---
ABDOMEN 2VIEW W/PA CHEST RTN CLINICAL HISTORY: 78 years-old Male presenting with ABDOMINAL PAIN/GI. TECHNIQUE: PA view of the chest and supine and upright views of the abdomen were obtained. COMPARISON: 10/21/2017. FINDINGS: Postsurgical changes of median sternotomy wires and aortic valve replacement. Mediastinal surgical clips also noted. Atherosclerosis of aortic arch. Chronic silhouette normal in size. No focal opacity. No large effusion or pneumothorax. Nonobstructive bowel gas pattern. No gross pneumoperitoneum. Bilateral nephrolithiasis. No calcifications along the courses of the proximal to mid ureters. Evaluation of the distal ureters is concave by the presence of numerous pelvic phleboliths. Atherosclerosis. Degenerative changes of the spine. Heterotopic ossification surrounding the right hip joint again noted. IMPRESSION: 1. Postsurgical changes of aortic valve replacement. No acute cardiopulmonary disease. 2. Bilateral nephrolithiasis. Allowing for the presence of numerous pelvic phleboliths, no radiographic evidence of ureteral calculi. 3. No obstruction or free air. Electronically signed by: Ney Riley M.D. 03/17/2018 3:48 PM Dictated Date/Time: 03/17/2018 3:44 PM
[2018-03-17 16:48] LABS: ALKALINE PHOSPHATASE 81 U/L (45-117); ALT/SGPT 21 U/L (12-78); AST/SGOT 25 U/L (15-37); BLOOD UREA NITROGEN 22 mg/dl (7-18); CARBON DIOXIDE 24 mmol/L (21-32); CREATININE 1.15 mg/dl (0.60-1.40); GLUCOSE 89 mg/dl (70-99); LIPASE 124 U/L (73-393); POTASSIUM 3.9 mmol/L (3.5-5.1); SODIUM 140 mmol/L (136-145); TOTAL PROTEIN 7.7 gm/dl (6.4-8.2)
[2018-03-17] MEDS ORDERED: OPTIRAY 320 IV PRN (17:15)
--- NOTE | 2018-03-17 17:23 | DIAGNOSTIC IMAGING REPORT ---
CT SCAN OF THE ABDOMEN AND PELVIS WITH IV CONTRAST CLINICAL HISTORY: Generalized abdominal pain. Nausea and vomiting. Diarrhea. Leukocytosis. COMPARISON STUDY: Abdominal CT dated 02/23/2017. TECHNIQUE: Following the IV administration of 93 cc of Optiray 320, CT scan of the abdomen and pelvis is performed from the lung bases to the proximal femora. Images are reviewed in the axial, sagittal, and coronal planes. IV contrast was administered without complication. A dose lowering technique was utilized adhering to the principles of ALARA. CT DOSE: 603.61 mGycm FINDINGS: Lung bases: The patient is status post midline sternotomy. The heart is top normal in size and without pericardial effusion. There are coronary artery calcifications. The lung bases are clear noting minimal dependent atelectasis. Liver: The contrast-enhanced liver is normal in size, contour, and attenuation. There is no intrahepatic biliary ductal dilatation. The hepatic veins and portal veins are patent. Gallbladder: There are calcified gallstones, without CT evidence of acute cholecystitis. Spleen: Normal in size and attenuation. Pancreas: Unremarkable. Adrenal glands: Unremarkable. Kidneys: The contrast enhanced kidneys demonstrate cortical atrophy and are without hydronephrosis. The kidneys enhance symmetrically. Small renal cysts measure up to 12 mm. Additional subcentimeter cortical hypodensities also likely represent cysts but are too small for definitive characterization. There are numerous bilateral nonobstructing renal calculi. The largest is in the left lower pole and measures up to 11 mm. There is a retroaortic left renal vein. Abdominal vasculature: There is advanced atherosclerotic calcification and ectasia of the abdominal aorta. Bowel: Liquid stool is noted throughout the colon. No bowel obstruction is identified. There is no colonic wall thickening or pericolonic inflammation. There are scattered normal caliber loops of fluid-filled small bowel. The appendix is well-visualized and normal. Peritoneum: There is no intraperitoneal free air or abdominal ascites. Lymphadenopathy: None. Pelvic viscera: The bladder, prostate, and seminal vesicles are normal as visualized. Skeletal structures: The skeletal structures are osteopenic. There is mild to moderate lumbosacral spondylosis. No lytic or blastic lesions are seen. IMPRESSION: 1. Liquid stool seen throughout the colon and there are fluid-filled loops of normal caliber small bowel. Correlate clinically for evidence of a mild nonspecific enterocolitis. 2. There is no colonic wall thickening or pericolonic inflammation. No bowel obstruction is identified. 3. There are numerous bilateral nonobstructing renal calculi. 4. Cholelithiasis. 5. Additional findings as above. Electronically signed by: Landon Lynch M.D. 03/17/2018 5:22 PM Dictated Date/Time: 03/17/2018 5:13 PM
[2018-03-17] MEDS ORDERED: ONDA4TAB10 SL (17:42)
--- NOTE | 2018-03-17 17:46 | EMERGENCY ROOM VISIT NOTE ---
ED Visit Note First contact with patient: 14:11 The patient was seen and examined with Julian Spangler PA-C. I agree with the history, physical and findings. Please see the note for disposition and details.
[2018-03-17 17:55] VITALS: BP 120/64; PULSE 95; O2SAT 95
--- NOTE | 2018-03-17 21:13 | EMERGENCY ROOM VISIT NOTE ---
ED Visit Note First contact with patient: 14:11 Chief Complaint: Abdominal pain, vomiting and diarrhea. History of Present Illness: Mr. Chen is a 78 year-old black male who ambulates into the ED accompanied by his complaining of bilateral mid quadrant abdominal pain, nausea/vomiting and diarrhea. Historically patient reports he has no significant gastrointestinal disorders or abdominal surgeries. He does report he has significant coronary artery disease and is status post CABG. Patient reports for the last 2 days he has had mild bilateral abdominal pain in the mid quadrant area. The pain has been constant but has waxed and waned in intensity. This morning shortly after waking he reports the pain intensified and then he had a large bowel movement which relieved most of his discomfort. Throughout the rest of the day he reports he has been having waxing and waning pain that has been associated with additional episodes of diarrhea and also vomiting. Currently he describes his pain as a severe cramping sensation. He rates his discomfort 5/10. His pain is nonradiating. He has noted decreased pain with either episodes of vomiting or diarrhea. He has not taken any medications for his symptoms prior to arrival at the hospital. Associated with his pain he reports he has been having chills but no nica fever, sensations of fatigue, nausea, bilious vomiting, and light brown diarrhea. Patient denies sweats, skin eruptions, skin color changes, upper respiratory tract symptoms, shortness of breath, chest pain, hematemesis, hematochezia, constipation, melena. Urinary symptoms, hematuria, back/flank pain. Review of Systems: As noted above in history of present illness. All body systems were reviewed and found to be negative as noted above. Past Medical History: As previously noted and kidney stones, benign prostatic hypertrophy, hypertension, hypothyroidism. Current Medications: Medications Dose Route/Sig Max Daily Dose Days Date Category Metamucil Fiber (Psyllium) 51.7 % Onesimo 1 Dose PO TID 03/17/18 Reported Probiotic (Probiotic Product) 1 Tab Tab 1 Tab PO DAILY 03/17/18 Reported Miralax (Polyethylene Glycol 3350) 1 Pow Pow 17 Gm PO DAILY PRN 03/17/18 Reported Aspirin Ec (Aspirin) 81 Mg Tab 81 Mg PO DAILY 08/28/17 Reported Levothyroxine Sodium 25 Mcg Tab 25 Mcg PO QPM 11/17/16 Reported Flomax (Tamsulosin Hcl) 0.4 Mg Cap 0.4 Mg PO QAM 06/01/15 Reported Lopressor (Metoprolol Tartrate) 25 Mg Tab 12.5 Mg PO HS 07/16/11 Reported Plavix (Clopidogrel Bisulfate) 75 Mg Tab 75 Mg PO HS 07/16/11 Reported Prilosec (Omeprazole) 20 Mg Capcr 20 Mg PO QAM 07/16/11 Reported Allergies to Medications: Chlamydia, ranitidine. Social History: Patient is currently retired; he feels safe in his home environment; he denies tobacco use. Physical Examination: Vital Signs: Date Time Temp Pulse Resp B/P (MAP) Pulse Ox O2 Delivery O2 Flow Rate FiO2 03/17/18 17:44 95 18 120/64 95 Room Air 03/17/18 16:23 85 03/17/18 16:20 89 18 122/65 98 Room Air 03/17/18 14:07 36.9 90 16 105/60 97 Room Air GENERAL: 78-year-old male in mild to moderate distress due to pain, nontoxic- appearing, afebrile and hemodynamically stable. NEUROLOGICAL: Awake, alert and oriented to person, place and time. Answering questions appropriately and following commands. Normal gait. Good hand eye coordination. SKIN: Warm, dry and pink. No soft tissue eruptions or trauma noted. HEENT: Atraumatic and normocephalic. Sclera white and conjunctiva pink. Oral cavity moist and pink. Pharynx is nonerythematous or edematous. Speech normal. No lymphadenopathy. Trachea midline. No jugular venous distention. BACK: No tenderness over the bony spine. No CVA tenderness. THORAX: Lungs sounds are clear to auscultation and equal bilaterally with symmetrical chest wall. No wheezing, rales or rhonchi. No crepitus, tenderness , subcutaneous air or deformities noted. HEART: Regular rate and rhythm. No gallops, rubs or murmurs are appreciated. ABDOMEN: Mildly distended, soft and mild bilateral mid quadrant tenderness. Positive bowel sounds in all quadrants. No guarding, rigidity or organomegaly. EXTREMITIES: Moves all extremities well on command and with purpose. All distal neurovascular statuses are intact and equal bilaterally. ED Course: Patient is assessed as noted above. Patient's medication list was reviewed. Laboratory Testing: Test 03/17/18 15:00 03/17/18 15:45 Range/Units White Blood Count 16.19 4.8-10.8 K/uL Red Blood Count 4.61 4.7-6.1 M/uL Hemoglobin 14.9 14.0-18.0 g/dL Hematocrit 43.4 42-52 % Mean Corpuscular Volume 94.1 80-100 fL Mean Corpuscular Hemoglobin 32.3 25-34 pg Mean Corpuscular Hemoglobin Concent 34.3 32-36 g/dl Platelet Count 136 130-400 K/uL Mean Platelet Volume 11.0 7.4-10.4 fL Neutrophils (%) (Auto) 94.2 % Lymphocytes (%) (Auto) 2.7 % Monocytes (%) (Auto) 2.2 % Eosinophils (%) (Auto) 0.6 % Basophils (%) (Auto) 0.1 % Neutrophils # (Auto) 15.24 1.4-6.5 K/uL Lymphocytes # (Auto) 0.44 1.2-3.4 K/uL Monocytes # (Auto) 0.35 0.11-0.59 K/uL Eosinophils # (Auto) 0.10 0-0.5 K/uL Basophils # (Auto) 0.02 0-0.2 K/uL RDW Standard Deviation 48.1 36.4-46.3 fL RDW Coefficient of Variation 14.0 11.5-14.5 % Immature Granulocyte % (Auto) 0.2 % Immature Granulocyte # (Auto) 0.04 0.00-0.02 K/uL Prothrombin Time 10.2 9.0-12.0 SECONDS Prothromb Time International Ratio 1.0 0.9-1.1 Activated Partial Thromboplast Time 23.5 21.0-31.0 SECONDS Partial Thromboplastin Ratio 0.9 Sodium Level 140 136-145 mmol/L Potassium Level 3.9 3.5-5.1 mmol/L Chloride Level 109 98-107 mmol/L Carbon Dioxide Level 24 21-32 mmol/L Anion Gap 7.0 3-11 mmol/L Blood Urea Nitrogen 22 7-18 mg/dl Creatinine 1.15 0.60-1.40 mg/dl Est Creatinine Clear Calc Drug Dose 56.3 ml/min Estimated GFR () 70.7 Estimated GFR (Non- 61.0 BUN/Creatinine Ratio 19.0 10-20 Random Glucose 89 70-99 mg/dl Calcium Level 9.0 8.5-10.1 mg/dl Total Bilirubin 1.0 0.2-1 mg/dl Direct Bilirubin 0.2 0-0.2 mg/dl Aspartate Amino Transf (AST/SGOT) 25 15-37 U/L Alanine Aminotransferase (ALT/SGPT) 21 12-78 U/L Alkaline Phosphatase 81 45-117 U/L Troponin I < 0.015 0-0.045 ng/ml Total Protein 7.7 6.4-8.2 gm/dl Albumin 4.0 3.4-5.0 gm/dl Lipase 124 73-393 U/L Acute Abdominal X-Ray Series: Were read by myself and the radiologist showing a normal PA chest with no signs of infiltrates, effusions or pneumothorax. Mediastinal surgical clips noted. Normal heart size. Aortic valve replacement noted. Abdominal component shows a nonobstructive bowel gas pattern. No pneumoperitoneum. Bilateral nephrolithiasis. Atherosclerosis and degenerative changes in the spine. Contrast Abdominal/Pelvic CT: Was reviewed by myself and read by the radiologist and shows liquid stool seen throughout the colon and air-fluid loops of normal caliber small bowel, no colonic wall thickening or pericolonic inflammation, no bowel obstruction, numerous bilateral nonobstructing renal calculi, cholelithiasis. Radiological Testing: Patient was hydrated with normal saline and received 2 mg of morphine IV for pain and 4 mg of Zofran IV for nausea. Patient was reassessed multiple times during his stay in the emergency department. Patient's case was reviewed with Dr. Dill; we agreed on diagnostic approach, treatment, disposition and plan. Patient is were educated about today's findings and instructed on his treatment plan; they verbalized understanding and agreement with this plan. Clinical Impression: Acute gastroenteritis. Decision-Making: Initially my differential diagnosis I considered bowel obstruction, perforated viscus, C. difficile, other diarrheal illnesses, colitis , enteritis, diverticulitis and other causes. Disposition: Patient discharged home in stable condition accompanied by his ; prior to discharge he was reassessed and subjectively reported he was feeling much better. He was able to tolerate water without return of nausea/vomiting. Reevaluation of his abdomen was soft and nontender. Patient reports she had no additional episodes of vomiting or diarrhea. Plan: Patient was encouraged you 650 mg of acetaminophen every 6 hours as needed for pain and avoid NSAIDs. Patient was prescribed Zofran 4 mg every 6 hours as needed for nausea/vomiting. Patient was encouraged use OTC Imodium for diarrhea and follow packaging instructions for dosing. Patient was encouraged to stay well-hydrated with increased clear fluids for the next 48 hours and to use a bland diet for the next 48 hours. Patient was encouraged to follow-up with his PCP for recheck in 1-2 days. Patient was encouraged return the ED for worsening/uncontrolled pain, worsening nausea/vomiting/diarrhea, bloody vomitus, bloody stools, fever or any new/ concerning symptoms.
== END 2018-03-17 17:56 | disposition home or self-care (01) ==
LOC: C.EDB 14:03 → C.EDA 17:56
DX: K52.9 Noninfective gastroenteritis and colitis, unspecified (principal); I25.10 Atherosclerotic heart disease of native coronary artery without angina pectoris; I10 Essential (primary) hypertension; E03.9 Hypothyroidism, unspecified; Z79.82 Long term (current) use of aspirin; Z79.899 Other long term (current) drug therapy; Z95.1 Presence of aortocoronary bypass graft; Z88.8 Allergy status to other drugs, medicaments and biological substances; Z91.048 Other nonmedicinal substance allergy status